=== PATIENT | male | born 1950 | race Caucasian/White ===

== ENCOUNTER 2020-07-03 12:45 | Outpatient (CLI) | payer MEDICARE, OTHER ==
--- NOTE | 2020-07-03 13:51 | CT ---
EXAM: CT Pulmonary Lung Scan PROVIDED CLINICAL HISTORY: Nicotine dependence, cigarettes, uncomplicated. Initial baseline low-dose lung screening CT. COMPARISON: None FINDINGS: Scattered bullous emphysematous changes are seen within the lungs bilaterally with areas of mild scar ring at each lung base. Single tiny approximately 2 mm pulmonary nodule seen in the medial aspect left lung apex. No addition al pulmonary nodule is seen. There is no mass or pleural effusion identified. Lack of intravenous contrast limits evaluation of the mediastinal structures and vasculature. Vascula r calcifications are seen in the coronary arteries with minimal vascular calcifications in the aortic arch. There is a nonspecific mildly enlarged precarinal lymph node measuring 1.3 cm in short axis dimension . Postoperative changes upper abdomen are present. Large multi cystic mass was present in the head of p ancreas on the prior study with dilatation of pancreatic duct. There is limited evaluation of this region on today's examination secondary to lack of intravenous contrast. However, this large mass is no longer visualized, and the postoperative changes in the upper abdomen may be related to prior Whipple procedure. Evidence of cholecystectomy with pneumobilia in the left hepatic lobe. Nonobstructing bilateral renal calculi are present, largest calculus right kidney measuring approxima tely 6 mm. Mild degenerative changes are seen in the spine. No suspicious lytic or sclerotic osseous lesions are identified. There is mild S-shaped curvature of thoracolumbar spine. IMPRESSION: 1. Lung RADS category 2, benign appearance-small 3 mm pulmonary nodule left upper lobe. Continued steve ual screening with low-dose CT scan thorax in 12 months is recommended. 2. Postoperative changes upper abdomen. 3. Bilateral nonobstructing renal calculi. 4. Chronic lung changes and evidence of COPD.
== END 2020-07-03 12:46 | disposition home or self-care (01) ==
LOC: BICCT 12:45
PROVIDERS: ATTEND Physician Assistant
DX: Z12.2 Encounter for screening for malignant neoplasm of respiratory organs (principal); F17.210 Nicotine dependence, cigarettes, uncomplicated; R91.1 Solitary pulmonary nodule; N20.0 Calculus of kidney; J44.9 Chronic obstructive pulmonary disease, unspecified; J98.4 Other disorders of lung; Z98.890 Other specified postprocedural states
CPT/HCPCS: G0297

== ENCOUNTER 2020-10-06 21:50 | Inpatient (IN) | payer MEDICARE, OTHER ==
[2020-10-07 01:16] VITALS: BMI 16.7
[2020-10-07] MEDS ORDERED: Dextrose 5% in Water 1,000 ML IV PRN ×2 (01:57→02:54)
[2020-10-07] MEDS ORDERED: Dextrose 50% Abboject 50 ML SYRINGE SLOW IVP PRN ×2 (01:57→02:54)
[2020-10-07] MEDS ORDERED: Ondansetron PF 4 MG/2 ML Vial IVP PRN (01:57)
[2020-10-07] MEDS ORDERED: hydrALAZINE 20 MG/ML VIAL SLOW IVP PRN (01:57)
[2020-10-07] MEDS ORDERED: traMADol HCl 50 MG TAB PO PRN (01:58)
[2020-10-07] MEDS ORDERED: Morphine 2 MG/ML VIAL SLOW IVP SCH (02:00)
[2020-10-07] MEDS ORDERED: Gabapentin 300 MG CAP PO SCH (02:30)
[2020-10-07] MEDS: Acetaminophen 325 MG TAB PO SCH ×4 (02:33→20:00)
[2020-10-07] MEDS: Nicotine 14 MG PATCH TD SCH (02:33)
[2020-10-07] MEDS: traMADol HCl 50 MG TAB PO SCH ×4 (02:33→20:00)
[2020-10-07] MEDS: Ibuprofen 200 MG TAB PO SCH ×3 (02:35→19:57)
[2020-10-07 04:38] LABS: #Eosinphils 0.1 thou/uL (0.0-0.7); #Lymphocytes 1.7 thou/uL (1.20-3.40); #Neutrophils 5.4 thou/uL (1.40-6.50); %Basophils 0.1 % (0.0-1.0); %Eosinophils 0.8 % (0.0-10.0); %Lymphocytes 20.7 % (21.0-51.0); %Neutrophils 66.3 % (42.0-75.0); Hemoglobin 11.3 g/dL (14.0-18.0); Mean Corpuscular HGB CONC 33.3 g/dL (32.0-36.0); Mean Corpuscular Hemoglobin 32.4 pg (27.0-31.0); Mean Corpuscular Volume 97.3 fL (78.0-98.0); Mean Platelet Volume 10.4 fL (7.4-10.4); Platelet Count 160 thou/uL (130-400); RBC Distribution Width 13.3 % (11.5-14.5); Red Blood Cell (RBC) Count 3.47 mill/uL (4.70-6.10); White Blood Cell (WBC) Count 8.1 thou/uL (4.8-10.8)
[2020-10-07 04:56] LABS: Anion Gap 11 mmol/L (10-20); BUN (Urea Nitrogen) 20 mg/dL (8.4-25.7); Calc. Creatinine Clearance 58 mL/min (70-130); Calcium 7.7 mg/dL (7.8-10.44); Carbon Dioxide 19 mmol/L (23-31); Chloride 111 mmol/L (98-107); Glucose 194 mg/dL (83-110); Potassium 3.8 mmol/L (3.5-5.1); Sodium 137 mmol/L (136-145)
[2020-10-07 04:58] LABS: ALT (SGPT) 24 U/L (8-55); AST (SGOT) 30 U/L (5-34); Albumin 2.8 g/dL (3.4-4.8); Alkaline Phosphatase 117 U/L (40-110); Bilirubin, Direct 0.3 mg/dL (0.1-0.3); Bilirubin, Total 0.5 mg/dL (0.2-1.2); Protein, Total 5.6 g/dL (5.8-8.1)
[2020-10-07 06:36] LABS: Troponin I 0.274 ng/mL (< 0.028)
[2020-10-07] MEDS: HumaLOG 300 UNITS/3 ML VIAL SC PRN ×3 (06:45→22:00)
[2020-10-07] MEDS: Gabapentin 300 MG CAP PO SCH ×3 (08:45→19:59)
[2020-10-07] MEDS: Senokot S 8.6-50 MG TAB PO SCH ×2 (08:46→20:00)
[2020-10-07] MEDS: Famotidine 20 MG TAB PO SCH ×2 (08:46→19:59)
[2020-10-07] MEDS: Polyethylene Glycol 3350 17 GM Packet PO SCH (08:47)
[2020-10-07] MEDS ORDERED: TETANUS, DIPHTHERIA TOX,ADULT (TDVAX) 0.5 ML VIAL IM ONE (12:00)
[2020-10-08] MEDS: Acetaminophen 325 MG TAB PO SCH ×2 (02:07→08:55)
[2020-10-08] MEDS: Ibuprofen 200 MG TAB PO SCH ×2 (02:07→08:54)
[2020-10-08] MEDS: Nicotine 14 MG PATCH TD SCH (02:08)
[2020-10-08] MEDS: traMADol HCl 50 MG TAB PO SCH ×2 (02:08→08:51)
[2020-10-08] MEDS: HumaLOG 300 UNITS/3 ML VIAL SC PRN ×3 (02:19→12:33)
[2020-10-08 06:28] LABS: #Eosinphils 0.2 thou/uL (0.0-0.7); #Lymphocytes 1.6 thou/uL (1.20-3.40); #Monocytes 1.4 thou/uL (0.11-0.59); #Neutrophils 6.1 thou/uL (1.40-6.50); %Basophils 0.3 % (0.0-1.0); %Eosinophils 2.4 % (0.0-10.0); %Lymphocytes 17.6 % (21.0-51.0); %Monocytes 14.4 % (0.0-10.0); %Neutrophils 65.2 % (42.0-75.0); Hemoglobin 10.5 g/dL (14.0-18.0); Mean Corpuscular HGB CONC 33.5 g/dL (32.0-36.0); Mean Corpuscular Hemoglobin 32.5 pg (27.0-31.0); Mean Corpuscular Volume 97.2 fL (78.0-98.0); Mean Platelet Volume 10.5 fL (7.4-10.4); Platelet Count 134 thou/uL (130-400); RBC Distribution Width 13.3 % (11.5-14.5); Red Blood Cell (RBC) Count 3.24 mill/uL (4.70-6.10); White Blood Cell (WBC) Count 9.4 thou/uL (4.8-10.8)
[2020-10-08] MEDS: Famotidine 20 MG TAB PO SCH (08:50)
[2020-10-08] MEDS: Senokot S 8.6-50 MG TAB PO SCH (08:52)
[2020-10-08] MEDS: Gabapentin 300 MG CAP PO SCH (08:52)
[2020-10-08] MEDS: Polyethylene Glycol 3350 17 GM Packet PO SCH (08:52)
[2020-10-08 12:12] VITALS: BP 142/77; TEMP 97.9
== END 2020-10-08 13:55 | disposition home or self-care (01) | DRG 184 ==
LOC: 2NO 10-07 01:02 → SJJU 10-07 17:35
PROVIDERS: ADMIT Specialist; ATTEND Specialist
PROC: 3E0234Z Introduction of Serum, Toxoid and Vaccine into Muscle, Percutaneous Approach (ICD-10-PCS; principal; 2020-10-07)
DX: S22.41XA Multiple fractures of ribs, right side, initial encounter for closed fracture (principal); Z23 Encounter for immunization; S22.21XA Fracture of manubrium, initial encounter for closed fracture; S26.91XA Contusion of heart, unspecified with or without hemopericardium, initial encounter; E11.9 Type 2 diabetes mellitus without complications; J44.9 Chronic obstructive pulmonary disease, unspecified; F17.210 Nicotine dependence, cigarettes, uncomplicated; R77.8 Other specified abnormalities of plasma proteins; W55.29XA Other contact with cow, initial encounter
CPT/HCPCS: 36415; 36416; 71045; 71260; 72125; 80048; 80053; 80076; 82550; 82553; 84484; 85025; 90714; 93005; 93306; 94640; 96374; 96375; J1815; J1885; J2270; J7620; U0002

== ENCOUNTER 2024-02-29 15:04 | Inpatient (IN) | payer MEDICARE, OTHER ==
[2024-02-29 18:24] LABS: #Basophils Less than 0.03 10x3/uL (0.0-0.2); %Basophils 0.2 % (0.0-1.0); %Eosinophils 1.7 % (0.0-10.0); %Lymphocytes 27.9 % (21.0-51.0); %Monocytes 11.4 % (0.0-10.0); %Neutrophils 58.5 % (42.0-75.0); Hematocrit 31.2 % (42.0-52.0); Hemoglobin 10.2 g/dL (14.0-18.0); Mean Corpuscular HGB CONC 32.7 g/dL (32.0-36.0); Mean Corpuscular Hemoglobin 30.4 pg (27.0-31.0); Mean Corpuscular Volume 92.9 fL (78.0-98.0); Mean Platelet Volume 11.3 fL (7.4-10.4); Platelet Count 481 10x3/uL (130-400); RBC Distribution Width 18.6 % (11.5-14.5); Red Blood Cell (RBC) Count 3.36 mill/uL (4.70-6.10)
[2024-02-29 18:40] LABS: ALT (SGPT) 24 U/L (8-55); AST (SGOT) 34 U/L (5-34); Albumin 2.1 g/dL (3.4-4.8); Alkaline Phosphatase 120 U/L (40-110); Anion Gap 14 mmol/L (10-20); BUN (Urea Nitrogen) 56 mg/dL (8.4-25.7); Bilirubin, Total 0.3 mg/dL (0.2-1.2); Calc. Creatinine Clearance 0 mL/min (70-130); Calcium 8.3 mg/dL (7.8-10.44); Carbon Dioxide 17 mmol/L (23-31); Chloride 113 mmol/L (98-107); Estimated GFR 41; Globulin 4.3 g/dL (2.4-3.5); Glucose 190 mg/dL (83-110); Potassium 3.9 mmol/L (3.5-5.1); Protein, Total 6.4 g/dL (5.8-8.1); Sodium 140 mmol/L (136-145)
[2024-02-29] MEDS ORDERED: Morphine 2 MG/ML VIAL ONE (19:10)
[2024-02-29 20:05] LABS: INR-International Normal Ratio 1.1; PTT 30.2 sec (22.9-36.1); Prothrombin Time 14.1 sec (12.0-14.7)
[2024-02-29] MEDS ORDERED: Morphine 4 MG/ML VIAL ONE (20:43)
[2024-02-29] MEDS ORDERED: Diphenoxylate HCl/Atropine Tablet PO PRN (21:25)
[2024-02-29] MEDS ORDERED: Dextrose 50% Abboject 50 ML SYRINGE SLOW IVP PRN (21:29)
[2024-02-29] MEDS ORDERED: Dextrose 5% in Water 1,000 ML IV PRN (21:29)
[2024-02-29] MEDS ORDERED: Ondansetron PF 4 MG/2 ML Vial IVP PRN (21:29)
[2024-02-29] MEDS ORDERED: Glucagon 1 MG/ML KIT IM PRN (21:29)
[2024-02-29 22:39] VITALS: BMI 17.4
[2024-03-01] MEDS: Morphine 2 MG/ML VIAL SLOW IVP PRN (00:22)
[2024-03-01] MEDS: traMADol HCl 50 MG TAB PO PRN (04:05)
[2024-03-01] MEDS: Insulin Lispro 100 UNIT/ML 10 ML VIAL SC PRN ×2 (04:06→22:42)
[2024-03-01 06:51] LABS: #Basophils 0.03 10x3/uL (0.0-0.2); %Basophils 0.3 % (0.0-1.0); %Eosinophils 1.9 % (0.0-10.0); %Lymphocytes 24.6 % (21.0-51.0); %Monocytes 15.3 % (0.0-10.0); %Neutrophils 57.6 % (42.0-75.0); Hematocrit 26.9 % (42.0-52.0); Hemoglobin 9.1 g/dL (14.0-18.0); Mean Corpuscular HGB CONC 33.8 g/dL (32.0-36.0); Mean Corpuscular Volume 88.8 fL (78.0-98.0); Mean Platelet Volume 11.1 fL (7.4-10.4); Platelet Count 412 10x3/uL (130-400); RBC Distribution Width 18.6 % (11.5-14.5); Red Blood Cell (RBC) Count 3.03 mill/uL (4.70-6.10)
[2024-03-01 07:00] LABS: Anion Gap 11 mmol/L (10-20); BUN (Urea Nitrogen) 48 mg/dL (8.4-25.7); Calc. Creatinine Clearance 36 mL/min (70-130); Calcium 7.8 mg/dL (7.8-10.44); Carbon Dioxide 19 mmol/L (23-31); Chloride 116 mmol/L (98-107); Estimated GFR 47; Glucose 77 mg/dL (83-110); Potassium 3.3 mmol/L (3.5-5.1); Sodium 143 mmol/L (136-145)
[2024-03-01] MEDS: Gabapentin 300 MG CAP PO SCH (08:39)
[2024-03-01] MEDS: Pantoprazole DR 40 MG TAB PO SCH (08:39)
[2024-03-01] MEDS: Cyclobenzaprine 10 MG TAB PO PRN (08:40)
[2024-03-01] MEDS ORDERED: Insulin NPH Human Isophane 100 UNITS/ML (10 ML VIAL) SC SCH ×2 (09:00→21:00)
[2024-03-01] MEDS: Pancrelipase DR 12,000 1 CAP PO SCH (09:13)
[2024-03-01] MEDS ORDERED: Lidocaine 1% (PF) 30 ML VIAL ONE (10:42)
[2024-03-01] MEDS: Amlodipine 5 MG TAB PO SCH (11:56)
[2024-03-01] MEDS: Torsemide 20 MG TAB PO SCH ×2 (11:56→22:37)
[2024-03-01 13:05] LABS: Synovial Fluid, Protein 2.8 g/dL (Not Available); Synovial Fluid, Uric Acid 8.4 mg/dL (Not Available)
[2024-03-01 14:34] LABS: BF Color Red; Body Fluid Source Synovial Fluid; Clarity Cloudy/Turbid (Clear); Tube # EDTA
[2024-03-01 14:50] VITALS: BMI 17.4
[2024-03-01 14:58] LABS: RBC Count-Automated (BF) 52459 /cu.mm; WBC/Nucleated-Auto (BF) 5974 /cu.mm
[2024-03-01 15:57] LABS: BF Segmented Neutrophils 86 %; Cell Count Non Hematic 12 %; Lymphocytes 2 %
[2024-03-01] MEDS: hydrALAZINE 10 MG TAB PO PRN (18:51)
[2024-03-01] MEDS: Losartan 25 MG TAB PO SCH (22:37)
[2024-03-01] MEDS: Tamsulosin HCl 0.4 MG CAP PO SCH (22:37)
[2024-03-02 05:55] LABS: #Basophils Less than 0.03 10x3/uL (0.0-0.2); %Basophils 0.2 % (0.0-1.0); %Eosinophils 1.8 % (0.0-10.0); %Lymphocytes 28.2 % (21.0-51.0); %Monocytes 16.5 % (0.0-10.0); Hematocrit 27.9 % (42.0-52.0); Hemoglobin 9.3 g/dL (14.0-18.0); Mean Corpuscular HGB CONC 33.3 g/dL (32.0-36.0); Mean Corpuscular Hemoglobin 30.8 pg (27.0-31.0); Mean Corpuscular Volume 92.4 fL (78.0-98.0); Mean Platelet Volume 11.3 fL (7.4-10.4); Platelet Count 405 10x3/uL (130-400); RBC Distribution Width 18.4 % (11.5-14.5); Red Blood Cell (RBC) Count 3.02 mill/uL (4.70-6.10)
[2024-03-02 06:12] LABS: Anion Gap 11 mmol/L (10-20); BUN (Urea Nitrogen) 43 mg/dL (8.4-25.7); Calc. Creatinine Clearance 35 mL/min (70-130); Carbon Dioxide 23 mmol/L (23-31); Chloride 110 mmol/L (98-107); Potassium 4.1 mmol/L (3.5-5.1); Sodium 140 mmol/L (136-145)
[2024-03-02 06:13] LABS: Calcium 7.9 mg/dL (7.8-10.44); Estimated GFR 45; Glucose 113 mg/dL (83-110)
[2024-03-02] MEDS: Amlodipine 5 MG TAB PO SCH (08:59)
[2024-03-02] MEDS: Insulin Glargine 30 UNITS/0.3 ML VIAL SC SCH (09:04)
[2024-03-03] MEDS: Acetaminophen 325 MG TAB PO PRN (08:33)
[2024-03-03 12:54] VITALS: BP 122/61; TEMP 98.8
== END 2024-03-03 13:10 | disposition home or self-care (01) | DRG 556 ==
LOC: ERS 15:04 → SURG B 21:09 → OBSVTOIN 03-01 13:24
PROVIDERS: ADMIT Internal Medicine; ATTEND Internal Medicine
PROC: 0X983ZZ Drainage of Right Upper Arm, Percutaneous Approach (ICD-10-PCS; principal; 2024-03-01)
DX: M79.81 Nontraumatic hematoma of soft tissue (principal); I48.0 Paroxysmal atrial fibrillation; D64.9 Anemia, unspecified; E11.51 Type 2 diabetes mellitus with diabetic peripheral angiopathy without gangrene; K21.9 Gastro-esophageal reflux disease without esophagitis; E11.40 Type 2 diabetes mellitus with diabetic neuropathy, unspecified; E11.22 Type 2 diabetes mellitus with diabetic chronic kidney disease; F17.210 Nicotine dependence, cigarettes, uncomplicated; I12.9 Hypertensive chronic kidney disease with stage 1 through stage 4 chronic kidney disease, or unspecified chronic kidney disease; N18.2 Chronic kidney disease, stage 2 (mild); Z79.899 Other long term (current) drug therapy; Z79.01 Long term (current) use of anticoagulants; Z79.4 Long term (current) use of insulin; Z90.410 Acquired total absence of pancreas; Z90.81 Acquired absence of spleen
CPT/HCPCS: 36415; 36416; 80048; 80053; 82945; 83605; 84157; 84560; 85025; 85060; 85610; 85730; 87040; 87070; 87205; 89051; 89060; 96374; 96376; G0378; J1815; J2001; J2272

== ENCOUNTER 2024-05-06 15:27 | Outpatient (CLI) | payer MEDICARE ==
[2024-05-06 16:41] LABS: #Basophils 0.03 10x3/uL (0.0-0.2); %Basophils 0.5 % (0.0-1.0); %Eosinophils 0.8 % (0.0-10.0); %Lymphocytes 31.7 % (21.0-51.0); %Monocytes 13.1 % (0.0-10.0); %Neutrophils 53.7 % (42.0-75.0); Hematocrit 36.2 % (42.0-52.0); Hemoglobin 11.7 g/dL (14.0-18.0); Mean Corpuscular HGB CONC 32.3 g/dL (32.0-36.0); Mean Corpuscular Hemoglobin 32.3 pg (27.0-31.0); Mean Platelet Volume 11.8 fL (7.4-10.4); Platelet Count 283 10x3/uL (130-400); RBC Distribution Width 16.3 % (11.5-14.5); Red Blood Cell (RBC) Count 3.62 mill/uL (4.70-6.10)
[2024-05-06 17:03] LABS: INR-International Normal Ratio 1.1; PTT 30.7 sec (22.9-36.1)
[2024-05-06 17:05] LABS: Anion Gap 12 mmol/L (10-20); BUN (Urea Nitrogen) 72 mg/dL (8.4-25.7); Calc. Creatinine Clearance 0 mL/min (70-130); Calcium 7.8 mg/dL (7.8-10.44); Carbon Dioxide 14 mmol/L (23-31); Chloride 113 mmol/L (98-107); Estimated GFR 26; Glucose 173 mg/dL (83-110); Potassium 3.9 mmol/L (3.5-5.1); Sodium 135 mmol/L (136-145)
== END 2024-05-06 15:28 | disposition home or self-care (01) ==
LOC: LABBT 15:27
PROVIDERS: ATTEND Orthopaedic Surgery
DX: Z01.818 Encounter for other preprocedural examination (principal); M12.811 Other specific arthropathies, not elsewhere classified, right shoulder
CPT/HCPCS: 80048; 85025; 85610; 85730; 86850; 86900; 86901; 87081; 93005; 93010

== ENCOUNTER 2024-05-13 07:02 | Inpatient (IN) | payer MEDICARE ==
[2024-05-06 16:06] VITALS: BMI 17.9
[2024-05-13] MEDS ORDERED: Midazolam HCl 2 mg/2 ml Vial ONE (08:24)
[2024-05-13] MEDS ORDERED: Ropivacaine 0.2% HCl/PF 20 ML ONE (08:24)
[2024-05-13] MEDS ORDERED: fentaNYL 50 mcg/mL 1 mL Vial ONE ×2 (08:24→13:03)
[2024-05-13] MEDS ORDERED: Ropivacaine 0.5% HCl/PF (150 MG/30 ML VIAL) ONE (08:24)
[2024-05-13] MEDS ORDERED: CEFAZOLIN 2 GM VIAL ONE (08:32)
[2024-05-13] MEDS ORDERED: Tranexamic Acid 1,000 MG/10 ML VIAL ONE (08:32)
[2024-05-13] MEDS ORDERED: Clindamycin/D5W 600 mg/50 ml Premix Bag ONE (08:32)
[2024-05-13] MEDS ORDERED: Sodium Chloride 0.9% 100 ML ONE (08:33)
[2024-05-13] MEDS ORDERED: PROPOFOL 20 ML ONE (08:44)
[2024-05-13] MEDS ORDERED: fentaNYL PF 100 MCG/2 ML SYRINGE ONE (08:44)
[2024-05-13] MEDS ORDERED: Zolpidem Tartrate 5 MG TAB PO PRN (08:45)
[2024-05-13] MEDS ORDERED: SUGAMMADEX SODIUM 200 MG/2 ML VIAL ONE ×2 (08:45→12:01)
[2024-05-13] MEDS ORDERED: Dexamethasone 4 mg/ml Vial ONE (08:45)
[2024-05-13] MEDS ORDERED: Ondansetron PF 4 MG/2 ML Vial IVP PRN (08:45)
[2024-05-13] MEDS ORDERED: Ropivacaine 0.2% 550 ML 550 ML NERVE BLCK SCH (08:45)
[2024-05-13] MEDS ORDERED: fentaNYL 50 mcg/mL 1 mL Vial SLOW IVP PRN (08:45)
[2024-05-13] MEDS ORDERED: HYDROcodone/Acetaminophen 10/325 mg Tablet PO PRN ×2 (08:45)
[2024-05-13] MEDS ORDERED: Rocuronium Bromide 10 MG/ML (10ML VIAL) ONE (08:45)
[2024-05-13] MEDS ORDERED: Promethazine HCl 25 MG/ML VIAL IM PRN (08:45)
[2024-05-13] MEDS ORDERED: Ondansetron PF 4 MG/2 ML Vial ONE (08:45)
[2024-05-13] MEDS ORDERED: traMADol HCl 50 MG TAB PO PRN ×2 (08:45)
[2024-05-13] MEDS ORDERED: Phenylephrine 40 MG/NS 250 ML 250 ML ONE (09:43)
[2024-05-13] MEDS ORDERED: Vancomycin 1 GM/200 ML (FROZEN) BAG ONE (10:01)
[2024-05-13] MEDS ORDERED: CEFAZOLIN 1 GM VIAL ONE (10:37)
[2024-05-13] MEDS ORDERED: Glycopyrrolate 0.2 MG/ML 5 ML SYRINGE ONE (10:37)
[2024-05-13] MEDS ORDERED: ePHEDrine Sulfate 50 MG/10 ML VIAL ONE (11:51)
[2024-05-13] MEDS ORDERED: Non-Formulary Item 1 EACH (Lipase/Protease/Amylase [Creon Dr 36,000 Units] 1 CAPSULE Caps PO SCH (13:19)
[2024-05-13] MEDS ORDERED: Ondansetron ODT 4 MG TAB PO PRN (13:19)
[2024-05-13] MEDS ORDERED: GLUCAGON 3 MG NS PRN (13:19)
[2024-05-13] MEDS ORDERED: diphenhydrAMINE 50 MG CAP PO PRN (13:19)
[2024-05-13] MEDS ORDERED: Milk Of Magnesia 30 ML UDCUP PO PRN (13:19)
[2024-05-13] MEDS ORDERED: Bisacodyl 10 MG SUPP PR PRN (13:19)
[2024-05-13] MEDS ORDERED: GLUCAGON 3 MG PO PRN (13:40)
[2024-05-13] MEDS ORDERED: Glucagon 1 MG/ML KIT IM PRN (16:33)
[2024-05-13] MEDS: Pancrelipase DR 12,000 1 CAP PO SCH (17:02)
[2024-05-13] MEDS: CEFAZOLIN 2 GM in Sodium Chloride 0.9% 100 ML IVPB SCH (17:04)
[2024-05-13] MEDS: FLU (Fluad Triv) TS24-25 (65UP)/MF59C/PF 45 MCG/0.5 ML Syringe IM ONE (17:12)
[2024-05-13] MEDS: Cyclobenzaprine 10 MG TAB PO SCH (17:12)
[2024-05-13] MEDS: Sodium Chloride 0.9% 1,000 ML IV SCH (17:13)
[2024-05-13] MEDS ORDERED: OLMESARTAN MEDOXOMIL 5 MG PO SCH (21:00)
[2024-05-13] MEDS ORDERED: Diphenoxylate HCl/Atropine Tablet PO SCH (21:00)
[2024-05-13] MEDS: Varenicline Tartrate 0.5 MG TAB PO SCH (21:35)
[2024-05-13] MEDS: Gabapentin 300 MG CAP PO SCH (21:35)
[2024-05-13] MEDS: Tamsulosin HCl 0.4 MG CAP PO SCH (21:36)
[2024-05-13] MEDS: Losartan 25 MG TAB PO SCH (21:36)
[2024-05-13] MEDS: Torsemide 20 MG TAB PO SCH (21:36)
[2024-05-13] MEDS: Diphenoxylate HCl/Atropine Tablet PO SCH (21:37)
[2024-05-13] MEDS ORDERED: Dextrose 5% in Water 1,000 ML IV PRN (22:46)
[2024-05-13] MEDS: Insulin Lispro 100 UNIT/ML 10 ML VIAL SC PRN (22:59)
[2024-05-14 05:06] LABS: #Basophils 0.03 10x3/uL (0.0-0.2); %Basophils 0.4 % (0.0-1.0); %Eosinophils 0.6 % (0.0-10.0); %Lymphocytes 18.7 % (21.0-51.0); %Monocytes 13.3 % (0.0-10.0); %Neutrophils 66.8 % (42.0-75.0); Hematocrit 26.4 % (42.0-52.0); Mean Corpuscular HGB CONC 34.1 g/dL (32.0-36.0); Mean Corpuscular Hemoglobin 31.6 pg (27.0-31.0); Mean Corpuscular Volume 92.6 fL (78.0-98.0); Mean Platelet Volume 12.2 fL (7.4-10.4); Platelet Count 242 10x3/uL (130-400); RBC Distribution Width 15.4 % (11.5-14.5); Red Blood Cell (RBC) Count 2.85 mill/uL (4.70-6.10)
[2024-05-14 05:56] LABS: Anion Gap 12 mmol/L (10-20); BUN (Urea Nitrogen) 49 mg/dL (8.4-25.7); Calc. Creatinine Clearance 22 mL/min (70-130); Calcium 7.2 mg/dL (7.8-10.44); Carbon Dioxide 13 mmol/L (23-31); Chloride 111 mmol/L (98-107); Estimated GFR 24; Glucose 457 mg/dL (83-110); Potassium 4.4 mmol/L (3.5-5.1); Sodium 132 mmol/L (136-145)
[2024-05-14] MEDS: Insulin Lispro 100 UNIT/ML 10 ML VIAL SC PRN (06:07)
[2024-05-14] MEDS: Insulin Glargine 30 UNITS/0.3 ML VIAL SC SCH (08:59)
[2024-05-14] MEDS: Apixaban 2.5 MG TAB PO SCH (09:00)
[2024-05-14] MEDS ORDERED: Insulin Glargine 30 UNITS/0.3 ML VIAL SC SCH (09:00)
[2024-05-14] MEDS: Pantoprazole DR 40 MG TAB PO SCH (09:01)
[2024-05-14] MEDS: HumuLIN 70/30 100 Unit/ml 10 ml Vial SC SCH (09:55)
[2024-05-14 16:09] VITALS: BMI 17.9
[2024-05-14] MEDS: Sodium Bicarbonate Tab 325 MG TAB PO SCH (20:43)
[2024-05-14] MEDS: Clopidogrel Bisulfate 75 MG TAB PO SCH (20:44)
[2024-05-14] MEDS: Acetaminophen 325 MG TAB PO PRN (23:51)
[2024-05-15] MEDS: Dextrose 50% Abboject 50 ML SYRINGE SLOW IVP PRN (04:49)
[2024-05-15 05:43] LABS: Anion Gap 11 mmol/L (10-20); BUN (Urea Nitrogen) 52 mg/dL (8.4-25.7); Calc. Creatinine Clearance 28 mL/min (70-130); Calcium 7.1 mg/dL (7.8-10.44); Carbon Dioxide 15 mmol/L (23-31); Chloride 113 mmol/L (98-107); Estimated GFR 34; Glucose 174 mg/dL (83-110); Sodium 135 mmol/L (136-145)
[2024-05-15 05:46] LABS: #Basophils Less than 0.03 10x3/uL (0.0-0.2); #Eosinophils Less than 0.03 10x3/uL (0.0-0.7); %Basophils 0.2 % (0.0-1.0); %Eosinophils 0.1 % (0.0-10.0); %Lymphocytes 11.7 % (21.0-51.0); %Monocytes 16.7 % (0.0-10.0); %Neutrophils 70.9 % (42.0-75.0); Hematocrit 26.7 % (42.0-52.0); Mean Corpuscular HGB CONC 33.7 g/dL (32.0-36.0); Mean Corpuscular Hemoglobin 31.7 pg (27.0-31.0); Mean Platelet Volume 12.1 fL (7.4-10.4); Platelet Count 241 10x3/uL (130-400); RBC Distribution Width 15.7 % (11.5-14.5); Red Blood Cell (RBC) Count 2.84 mill/uL (4.70-6.10)
[2024-05-15 08:30] LABS: ALT (SGPT) 5 U/L (8-55); AST (SGOT) 20 U/L (5-34); Albumin 1.7 g/dL (3.4-4.8); Alkaline Phosphatase 100 U/L (40-110); Bilirubin, Direct 0.1 mg/dL (0.1-0.3); Bilirubin, Total 0.2 mg/dL (0.2-1.2); Protein, Total 4.5 g/dL (5.8-8.1)
[2024-05-15 11:17] VITALS: BP 165/72; TEMP 98.3
[2024-05-15] MEDS: Amlodipine 5 MG TAB PO SCH (11:34)
[2024-05-16] MEDS ORDERED: Amlodipine 5 MG TAB PO SCH (09:00)
== END 2024-05-15 12:51 | disposition home or self-care (01) | DRG 483 ==
LOC: SDC 07:02 → SURG A 14:40 → OBSVTOIN 05-14 10:04
PROVIDERS: ADMIT Orthopaedic Surgery; ATTEND Orthopaedic Surgery
PROC: 0RRJ00Z Replacement of Right Shoulder Joint with Reverse Ball and Socket Synthetic Substitute, Open Approach (ICD-10-PCS; principal; 2024-05-14)
DX: M12.811 Other specific arthropathies, not elsewhere classified, right shoulder (principal); I12.9 Hypertensive chronic kidney disease with stage 1 through stage 4 chronic kidney disease, or unspecified chronic kidney disease; E11.22 Type 2 diabetes mellitus with diabetic chronic kidney disease; E11.51 Type 2 diabetes mellitus with diabetic peripheral angiopathy without gangrene; K21.9 Gastro-esophageal reflux disease without esophagitis; N40.0 Benign prostatic hyperplasia without lower urinary tract symptoms; F17.210 Nicotine dependence, cigarettes, uncomplicated; I48.0 Paroxysmal atrial fibrillation; N18.30 Chronic kidney disease, stage 3 unspecified; E11.65 Type 2 diabetes mellitus with hyperglycemia; D63.1 Anemia in chronic kidney disease; I95.1 Orthostatic hypotension; E83.51 Hypocalcemia; Z91.041 Radiographic dye allergy status
CPT/HCPCS: 36415; 36416; 80048; 80076; 85025; 90653; A4306; C1713; C1776; J0690; J1100; J1815; J2250; J2405; J2704; J2795; J3010; J3370-JW; J3490; J7030; J7999

== ENCOUNTER 2024-07-19 15:26 | Outpatient (CLI) | payer MEDICARE ==
[2024-07-19 17:04] LABS: Hematocrit 31.5 % (42.0-52.0); Hemoglobin 10.1 g/dL (14.0-18.0); Mean Corpuscular HGB CONC 32.1 g/dL (32.0-36.0); Mean Corpuscular Hemoglobin 30.1 pg (27.0-31.0); Platelet Count 358 10x3/uL (130-400); RBC Distribution Width 18.5 % (11.5-14.5); Red Blood Cell (RBC) Count 3.35 mill/uL (4.70-6.10)
[2024-07-19 17:17] LABS: INR-International Normal Ratio 1.1; Prothrombin Time 14.4 sec (12.0-14.7)
[2024-07-19 17:27] LABS: Anisocytosis SLIGHT = 6-15 cells HPF (0-5); Band 5 % (5-11); Burr Cells SLIGHT = 2-5 cells HPF (0-1); Eosinophils 1 % (0-10); Hypochromia SLIGHT = 6-15 cells HPF (0-5); Large Platelets 26.5 % (0-5); Lymphocytes 15 % (21-51); Monocytes 10 % (0-10); Neutrophil 67 % (42-75); Nucleated RBC (Manual Ct) 7 % (0); Ovalocytes SLIGHT = 2-5 cells HPF (0-1); Platelet Adequacy Comment Platelets Normal; Poikilocytosis SLIGHT = 6-15 cells HPF (0-5); Polychromasia SLIGHT = 2-3 cells HPF (0-2); Reactive Lymphocytes 2 % (0-10); Schistocytes SLIGHT = 2-5 cells HPF (0-1); Smudge Cells 9.8 %; Target Cells SLIGHT = 2-5 cells HPF (0-1)
[2024-07-19 17:54] LABS: Anion Gap 14 mmol/L (10-20); BUN (Urea Nitrogen) 44 mg/dL (8.4-25.7); Calc. Creatinine Clearance 0 mL/min (70-130); Calcium 7.8 mg/dL (7.8-10.44); Carbon Dioxide 11 mmol/L (23-31); Chloride 115 mmol/L (98-107); Estimated GFR 21; Glucose 470 mg/dL (83-110); Potassium 5.3 mmol/L (3.5-5.1); Sodium 135 mmol/L (136-145)
== END 2024-07-19 15:27 ==
LOC: LABBT 15:26
PROVIDERS: ATTEND Orthopaedic Surgery
DX: Z01.818 Encounter for other preprocedural examination (principal); M00.811 Arthritis due to other bacteria, right shoulder; Z96.611 Presence of right artificial shoulder joint
CPT/HCPCS: 80048; 85025; 85610; 87081; 93005; 93010

== ENCOUNTER 2024-07-22 07:29 | Inpatient (IN) | payer MEDICARE ==
[2024-07-19 16:09] VITALS: BMI 17.8
[2024-07-22] MEDS ORDERED: Dextrose 50% Abboject 50 ML SYRINGE ONE (08:05)
[2024-07-22] MEDS ORDERED: Vancomycin 1 GM/200 ML (FROZEN) BAG ONE (08:17)
[2024-07-22] MEDS ORDERED: Tranexamic Acid 1,000 MG/10 ML VIAL ONE (08:17)
[2024-07-22] MEDS ORDERED: Sodium Chloride 0.9% 100 ML ONE (08:18)
[2024-07-22] MEDS ORDERED: PROPOFOL 20 ML ONE (08:37)
[2024-07-22] MEDS ORDERED: Lidocaine 1% PF 5 ML VIAL ONE (08:38)
[2024-07-22] MEDS ORDERED: fentaNYL 50 mcg/mL 1 mL Vial ONE ×2 (08:38→08:42)
[2024-07-22] MEDS ORDERED: Rocuronium Bromide 10 MG/ML (10ML VIAL) ONE (08:38)
[2024-07-22] MEDS ORDERED: Ropivacaine 0.5% HCl/PF (150 MG/30 ML VIAL) ONE (08:42)
[2024-07-22] MEDS ORDERED: CEFAZOLIN 2 GM VIAL ONE (09:23)
[2024-07-22] MEDS ORDERED: ePHEDrine Sulfate 50 MG/10 ML VIAL ONE (09:43)
[2024-07-22] MEDS ORDERED: Phenylephrine 40 MG/NS 250 ML 250 ML ONE (09:44)
[2024-07-22] MEDS ORDERED: Vasopressin 20 UNITS/ML VIAL ONE (10:59)
[2024-07-22] MEDS ORDERED: Norepinephrine 4 MG/4 ML VIAL ONE (11:00)
[2024-07-22] MEDS ORDERED: Ondansetron PF 4 MG/2 ML Vial ONE (11:26)
[2024-07-22] MEDS ORDERED: SUGAMMADEX SODIUM 200 MG/2 ML VIAL ONE (11:27)
[2024-07-22] MEDS ORDERED: traMADol HCl 50 MG TAB PO PRN (11:53)
[2024-07-22] MEDS ORDERED: Ondansetron HCl/PF 4 MG/2 ML Vial IVP PRN (12:15)
[2024-07-22] MEDS ORDERED: Promethazine HCl 25 MG/ML VIAL IM PRN (12:15)
[2024-07-22] MEDS: HYDROcodone/Acetaminophen 10/325 mg Tablet PO PRN (15:59)
[2024-07-22] MEDS: cefTRIAXone\\ROCEPHIN 2 GM in Sodium Chloride 0.9% 100 ML IVPB SCH (17:49)
[2024-07-23] MEDS: HYDROcodone/Acetaminophen 10/325 mg Tablet PO PRN (01:41)
[2024-07-23] MEDS ORDERED: Glucagon 1 MG/ML KIT IM PRN (02:43)
[2024-07-23] MEDS ORDERED: Dextrose 50% Abboject 50 ML SYRINGE SLOW IVP PRN (02:43)
[2024-07-23] MEDS ORDERED: Dextrose 5% in Water 1,000 ML IV PRN (02:43)
[2024-07-23] MEDS ORDERED: Diphenoxylate HCl/Atropine Tablet PO PRN (03:09)
[2024-07-23] MEDS ORDERED: Gabapentin 300 MG CAP PO PRN (03:14)
[2024-07-23] MEDS: Insulin Lispro 100 UNIT/ML 10 ML VIAL SC SCH (03:14)
[2024-07-23 05:55] LABS: Anion Gap 11 mmol/L (10-20); BUN (Urea Nitrogen) 57 mg/dL (8.4-25.7); Calc. Creatinine Clearance 16 mL/min (70-130); Calcium 7.3 mg/dL (7.8-10.44); Carbon Dioxide 10 mmol/L (23-31); Chloride 114 mmol/L (98-107); Estimated GFR 18; Glucose 315 mg/dL (83-110); Hematocrit 23.7 % (42.0-52.0); Hemoglobin 7.7 g/dL (14.0-18.0); Mean Corpuscular HGB CONC 32.5 g/dL (32.0-36.0); Mean Corpuscular Hemoglobin 30.3 pg (27.0-31.0); Mean Corpuscular Volume 93.3 fL (78.0-98.0); Mean Platelet Volume 11.6 fL (7.4-10.4); Platelet Count 299 10x3/uL (130-400); Potassium 4.6 mmol/L (3.5-5.1); RBC Distribution Width 18.6 % (11.5-14.5); Red Blood Cell (RBC) Count 2.54 mill/uL (4.70-6.10); Sodium 130 mmol/L (136-145)
[2024-07-23 06:25] LABS: Anisocytosis SLIGHT = 6-15 cells HPF (0-5); Band 2 % (5-11); Burr Cells MODERATE= 6-15 cells HPF (0-1); Eosinophils 2 % (0-10); Hypochromia SLIGHT = 6-15 cells HPF (0-5); Large Platelets 20.4 % (0-5); Lymphocytes 26 % (21-51); Monocytes 6 % (0-10); Neutrophil 63 % (42-75); Nucleated RBC (Manual Ct) 40 % (0); Platelet Adequacy Comment Platelets Normal; Poikilocytosis SLIGHT = 6-15 cells HPF (0-5); Polychromasia MODERATE = 3-4 cells HPF (0-2); Smudge Cells 11.7 %
[2024-07-23] MEDS: Insulin Glargine 30 UNITS/0.3 ML VIAL SC SCH (08:21)
[2024-07-23] MEDS: Pancrelipase DR 12,000 1 CAP PO SCH (08:38)
[2024-07-23] MEDS: Sodium Chloride 0.9% 1,000 ML IV SCH (08:48)
[2024-07-23 09:28] VITALS: BMI 17.8
[2024-07-23] MEDS: Metoprolol Succinate XL 25 MG ER.TAB PO SCH (09:38)
[2024-07-23] MEDS: Amlodipine 5 MG TAB PO SCH (09:38)
[2024-07-23] MEDS: Losartan 25 MG TAB PO SCH (09:38)
[2024-07-23] MEDS: Pantoprazole 40 MG DR.TAB PO SCH (09:38)
[2024-07-23 13:13] LABS: Hematocrit 28.9 % (42.0-52.0); Hemoglobin 9.7 g/dL (14.0-18.0)
[2024-07-23] MEDS: Insulin Lispro 100 UNIT/ML 10 ML VIAL SC PRN (17:54)
[2024-07-23] MEDS: Tamsulosin HCl 0.4 MG CAP PO SCH (21:44)
[2024-07-23] MEDS: CEFAZOLIN 2 GM in Sodium Chloride 0.9% 100 ML IVPB SCH (21:44)
[2024-07-24] MEDS: cefTRIAXone\\ROCEPHIN 2 GM in Sodium Chloride 0.9% 100 ML IVPB SCH (08:31)
[2024-07-24] MEDS: Saccharomyces boulardii 250 MG CAP PO SCH (08:49)
[2024-07-24 09:05] LABS: Hematocrit 28.3 % (42.0-52.0); Hemoglobin 9.6 g/dL (14.0-18.0); Mean Corpuscular HGB CONC 34.2 g/dL (32.0-36.0); Mean Corpuscular Hemoglobin 31.6 pg (27.0-31.0); Mean Corpuscular Volume 92.4 fL (78.0-98.0); Mean Platelet Volume 11.1 fL (7.4-10.4); Platelet Count 258 10x3/uL (130-400); RBC Distribution Width 17.9 % (11.5-14.5); Red Blood Cell (RBC) Count 3.04 mill/uL (4.70-6.10)
[2024-07-24 09:13] LABS: Anion Gap 13 mmol/L (10-20); BUN (Urea Nitrogen) 59 mg/dL (8.4-25.7); Calc. Creatinine Clearance 19 mL/min (70-130); Calcium 7.5 mg/dL (7.8-10.44); Carbon Dioxide 10 mmol/L (23-31); Chloride 114 mmol/L (98-107); Estimated GFR 22; Glucose 134 mg/dL (83-110); Potassium 5.8 mmol/L (3.5-5.1); Sodium 131 mmol/L (136-145)
[2024-07-24] MEDS: Insulin Glargine 30 UNITS/0.3 ML VIAL SC SCH (10:29)
[2024-07-24] MEDS: LOKELMA 10 GM PACKET PO SCH (11:17)
[2024-07-24] MEDS: Sodium Bicarbonate 150 MEQ in Dextrose 5% in Water 1,000 ML IV SCH ×2 (11:29→22:43)
[2024-07-24] MEDS ORDERED: Vancomycin Dose by Levels Sliding Scale (Wt <71) FS SCH (11:30)
[2024-07-24 12:19] LABS: Lactic Acid 0.92 mmol/L (0.5-2.2)
[2024-07-24] MEDS: Vancomycin 1 GM in Premix 1 BAG IVPB SCH ×2 (13:47→16:49)
[2024-07-24 17:02] LABS: Anion Gap 12 mmol/L (10-20); BUN (Urea Nitrogen) 58 mg/dL (8.4-25.7); Calc. Creatinine Clearance 21 mL/min (70-130); Calcium 7.3 mg/dL (7.8-10.44); Carbon Dioxide 13 mmol/L (23-31); Chloride 113 mmol/L (98-107); Estimated GFR 25; Glucose 234 mg/dL (83-110); Potassium 5.2 mmol/L (3.5-5.1); Sodium 133 mmol/L (136-145)
[2024-07-24 21:15] LABS: Anion Gap 14 mmol/L (10-20); BUN (Urea Nitrogen) 59 mg/dL (8.4-25.7); Calc. Creatinine Clearance 20 mL/min (70-130); Calcium 7.4 mg/dL (7.8-10.44); Carbon Dioxide 13 mmol/L (23-31); Chloride 113 mmol/L (98-107); Estimated GFR 23; Glucose 210 mg/dL (83-110); Potassium 5.1 mmol/L (3.5-5.1); Sodium 135 mmol/L (136-145)
[2024-07-25 06:03] LABS: Hematocrit 25.4 % (42.0-52.0); Hemoglobin 8.9 g/dL (14.0-18.0); Mean Corpuscular Hemoglobin 30.6 pg (27.0-31.0); Mean Corpuscular Volume 87.3 fL (78.0-98.0); Mean Platelet Volume 12.5 fL (7.4-10.4); Platelet Count 261 10x3/uL (130-400); RBC Distribution Width 17.4 % (11.5-14.5); Red Blood Cell (RBC) Count 2.91 mill/uL (4.70-6.10)
[2024-07-25 06:21] LABS: Anion Gap 12 mmol/L (10-20); BUN (Urea Nitrogen) 54 mg/dL (8.4-25.7); Calc. Creatinine Clearance 22 mL/min (70-130); Calcium 7.3 mg/dL (7.8-10.44); Carbon Dioxide 17 mmol/L (23-31); Chloride 112 mmol/L (98-107); Estimated GFR 26; Glucose 275 mg/dL (83-110); Potassium 4.8 mmol/L (3.5-5.1); Sodium 136 mmol/L (136-145)
[2024-07-25] MEDS ORDERED: Sodium Chloride 0.65% Nasal 44 ML BOT EA NARE PRN (11:51)
[2024-07-25] MEDS: Acetaminophen 325 MG TAB PO PRN (12:07)
[2024-07-25 13:12] LABS: Vancomycin, Trough 17.2 ug/mL
[2024-07-25 13:13] LABS: Anion Gap 14 mmol/L (10-20); BUN (Urea Nitrogen) 51 mg/dL (8.4-25.7); Calc. Creatinine Clearance 25 mL/min (70-130); Calcium 7.6 mg/dL (7.8-10.44); Carbon Dioxide 19 mmol/L (23-31); Chloride 110 mmol/L (98-107); Estimated GFR 30; Glucose 259 mg/dL (83-110); Potassium 5.3 mmol/L (3.5-5.1); Sodium 138 mmol/L (136-145)
[2024-07-25 14:59] LABS: Bilirubin Negative (Negative); Blood, Urine Trace (Negative); Clarity Clear (Clear); Glucose, Urine (Dipstick) 500 mg/dL (Negative); Ketone, Urine Negative (Negative); Leukocyte Negative Leu/uL (Negative); Nitrite Negative (Negative); Protein, Urine (Dipstick) 200 mg/dL (Neg-Trace); RBC/HPF 0-3 HPF (0-3); Specific Gravity, Urine 1.014 (1.002-1.036); Squamous Epithelial None Seen HPF (0-3); Urobilinogen Normal mg/dL (Less than 2); WBC/HPF 0-3 HPF (0-3)
[2024-07-25 15:02] LABS: Bacteria/HPF 1+ HPF (None Seen); Sperm/HPF Rare HPF (None Seen)
[2024-07-25] MEDS: Sodium Bicarbonate 150 MEQ in Dextrose 5% in Water 1,000 ML IV SCH (16:31)
[2024-07-25 16:40] LABS: Potassium 5.2 mmol/L (3.5-5.1)
[2024-07-25 18:22] LABS: Creatinine, Urine 45.8 mg/dL (22-328)
[2024-07-26] MEDS: Melatonin 3 MG TAB PO SCH ×2 (04:25→20:44)
[2024-07-26 05:48] LABS: Hematocrit 25.1 % (42.0-52.0); Hemoglobin 8.7 g/dL (14.0-18.0); Mean Corpuscular HGB CONC 34.7 g/dL (32.0-36.0); Mean Corpuscular Hemoglobin 30.2 pg (27.0-31.0); Mean Corpuscular Volume 87.2 fL (78.0-98.0); Mean Platelet Volume 12.2 fL (7.4-10.4); Platelet Count 262 10x3/uL (130-400); Red Blood Cell (RBC) Count 2.88 mill/uL (4.70-6.10)
[2024-07-26 06:02] LABS: Anion Gap 13 mmol/L (10-20); BUN (Urea Nitrogen) 48 mg/dL (8.4-25.7); Calc. Creatinine Clearance 26 mL/min (70-130); Calcium 7.2 mg/dL (7.8-10.44); Carbon Dioxide 22 mmol/L (23-31); Chloride 109 mmol/L (98-107); Estimated GFR 32; Glucose 271 mg/dL (83-110); Potassium 4.5 mmol/L (3.5-5.1); Sodium 139 mmol/L (136-145)
[2024-07-26] MEDS ORDERED: HumaLOG 300 UNITS/3 ML VIAL SC PRN (08:10)
[2024-07-26] MEDS: Calcitriol 0.25 MCG CAP PO SCH (08:58)
[2024-07-26] MEDS: Insulin Glargine 30 UNITS/0.3 ML VIAL SC SCH (08:59)
[2024-07-26] MEDS: EPOETIN ALFA-EPBX (ESRD) 10,000 UNITS/ML VIAL SC SCH (14:39)
[2024-07-26] MEDS: Insulin Lispro 100 UNIT/ML 10 ML VIAL SC PRN (18:20)
[2024-07-27 06:36] LABS: Hematocrit 24.5 % (42.0-52.0); Hemoglobin 8.2 g/dL (14.0-18.0); Mean Corpuscular HGB CONC 33.5 g/dL (32.0-36.0); Mean Corpuscular Hemoglobin 30.4 pg (27.0-31.0); Mean Corpuscular Volume 90.7 fL (78.0-98.0); Platelet Count 269 10x3/uL (130-400)
[2024-07-27 06:46] LABS: Anion Gap 12 mmol/L (10-20); BUN (Urea Nitrogen) 44 mg/dL (8.4-25.7); Calc. Creatinine Clearance 29 mL/min (70-130); Calcium 7.4 mg/dL (7.8-10.44); Carbon Dioxide 25 mmol/L (23-31); Chloride 109 mmol/L (98-107); Estimated GFR 36; Glucose 129 mg/dL (83-110); Potassium 4.5 mmol/L (3.5-5.1); Sodium 141 mmol/L (136-145)
[2024-07-27 07:55] LABS: Anisocytosis MODERATE=16-30 cells HPF (0-5); Burr Cells SLIGHT = 2-5 cells HPF (0-1); Eosinophils 5 % (0-10); Hypochromia SLIGHT = 6-15 cells HPF (0-5); Large Platelets 20.8 % (0-5); Lymphocytes 21 % (21-51); Monocytes 5 % (0-10); Neutrophil 69 % (42-75); Nucleated RBC (Manual Ct) 16 % (0); Platelet Adequacy Comment Platelets Normal; Polychromasia MODERATE = 3-4 cells HPF (0-2); Schistocytes MODERATE= 6-15 cells HPF (0-1); Target Cells SLIGHT = 2-5 cells HPF (0-1)
[2024-07-27] MEDS: Insulin Lispro 100 UNIT/ML 10 ML VIAL SC PRN (17:25)
[2024-07-27] MEDS: hydrALAZINE 20 MG/ML VIAL SLOW IVP SCH (21:56)
[2024-07-28 08:51] LABS: Hematocrit 28.9 % (42.0-52.0); Hemoglobin 9.9 g/dL (14.0-18.0); Mean Corpuscular HGB CONC 34.3 g/dL (32.0-36.0); Mean Corpuscular Volume 90.6 fL (78.0-98.0); Mean Platelet Volume 11.6 fL (7.4-10.4); Platelet Count 299 10x3/uL (130-400); RBC Distribution Width 17.1 % (11.5-14.5); Red Blood Cell (RBC) Count 3.19 mill/uL (4.70-6.10)
[2024-07-28 09:23] LABS: Anion Gap 13 mmol/L (10-20); BUN (Urea Nitrogen) 39 mg/dL (8.4-25.7); Calc. Creatinine Clearance 29 mL/min (70-130); Calcium 8.1 mg/dL (7.8-10.44); Carbon Dioxide 21 mmol/L (23-31); Chloride 110 mmol/L (98-107); Estimated GFR 36; Glucose 234 mg/dL (83-110); Potassium 5.2 mmol/L (3.5-5.1); Sodium 139 mmol/L (136-145)
[2024-07-28 12:24] VITALS: BP 151/83; TEMP 98.8
[2024-07-28 15:14] LABS: Albumin-Ur 50.6 % (.); Alpha 1 - Ur 2.3 % (.); Alpha 2 - Ur 10.5 % (.); Beta-Ur 19.5 % (.); M-Spike,% Not Observed % (Not Observed); Protein, Urine 244.2 mg/dL (Not Estab.)
[2024-07-29 15:12] LABS: A/G Ratio 0.7 (0.7-1.7); Albumin 2.1 g/dL (2.9-4.4); Alpha 1 0.3 g/dL (0.0-0.4); Alpha 2 0.6 g/dL (0.4-1.0); Beta 0.8 g/dL (0.7-1.3); Gamma 1.3 g/dL (0.4-1.8); Globulin, Total 2.9 g/dL (2.2-3.9); M-Spike Not Observed g/dL (Not Observed); Protein Electrophoresis Intrp Note: (.)
[2024-08-01] MEDS ORDERED: Ergocalciferol 1.25 MG(50,000 UNITS) CAP PO SCH (09:00)
== END 2024-07-28 12:25 | disposition home or self-care (01) | DRG 483 ==
LOC: SDC 07:29 → SURG B 13:18
PROVIDERS: ADMIT Orthopaedic Surgery; ATTEND Orthopaedic Surgery
PROC: 0RPJ0J6 Removal of Synthetic Substitute from Right Shoulder Joint, Humeral Surface, Open Approach (ICD-10-PCS; principal; 2024-07-22)
PROC: 0RRJ0J6 Replacement of Right Shoulder Joint with Synthetic Substitute, Humeral Surface, Open Approach (ICD-10-PCS; 2024-07-22)
DX: T84.59XA Infection and inflammatory reaction due to other internal joint prosthesis, initial encounter (principal); N17.9 Acute kidney failure, unspecified; E87.20 Acidosis, unspecified; M00.811 Arthritis due to other bacteria, right shoulder; K21.9 Gastro-esophageal reflux disease without esophagitis; Z98.890 Other specified postprocedural states; Z79.899 Other long term (current) drug therapy; E11.22 Type 2 diabetes mellitus with diabetic chronic kidney disease; N40.0 Benign prostatic hyperplasia without lower urinary tract symptoms; Z91.041 Radiographic dye allergy status; Z88.1 Allergy status to other antibiotic agents; F17.210 Nicotine dependence, cigarettes, uncomplicated; E11.65 Type 2 diabetes mellitus with hyperglycemia; E11.40 Type 2 diabetes mellitus with diabetic neuropathy, unspecified; N18.31 Chronic kidney disease, stage 3a; I12.9 Hypertensive chronic kidney disease with stage 1 through stage 4 chronic kidney disease, or unspecified chronic kidney disease; I48.0 Paroxysmal atrial fibrillation; D63.1 Anemia in chronic kidney disease; Z01.818 Encounter for other preprocedural examination; Z96.611 Presence of right artificial shoulder joint
CPT/HCPCS: 36415; 36416; 36430; 74176; 76770; 80048; 80202; 81001; 82040; 82306; 82570; 83605; 83970; 84155; 84156; 84165; 84166; 85025; 85027; 85610; 86141; 86850; 86900; 86901; 87070; 87081; 87205; 88305; 93005; 93010; 97139; C1713; C1776; C1889; J0360; J0696; J1815; J2405; J2704; J2795; J3010; J3370; J7030; J7070; J7999; P9016; Q5105

== ENCOUNTER 2024-08-09 23:14 | Emergency (ER) | payer MEDICARE ==
[2024-08-10 00:02] LABS: #Basophils 0.05 10x3/uL (0.0-0.2); %Lymphocytes 34.1 % (21.0-51.0); %Monocytes 14.1 % (0.0-10.0); %Neutrophils 42.4 % (42.0-75.0); Hematocrit 31.9 % (42.0-52.0); Hemoglobin 10.3 g/dL (14.0-18.0); Mean Corpuscular HGB CONC 32.3 g/dL (32.0-36.0); Mean Platelet Volume 12.2 fL (7.4-10.4); Platelet Count 314 10x3/uL (130-400); RBC Distribution Width 17.2 % (11.5-14.5); Red Blood Cell (RBC) Count 3.43 mill/uL (4.70-6.10)
[2024-08-10 00:51] LABS: ALT (SGPT) 36 U/L (Less than 45); Albumin 2.3 g/dL (3.1-4.5); Alkaline Phosphatase 159 U/L (40-110); Anion Gap 15 mmol/L (10-20); BUN (Urea Nitrogen) 61 mg/dL (8.4-25.7); Bilirubin, Total 0.2 mg/dL (0.3-1.2); Calc. Creatinine Clearance 0 mL/min (70-130); Calcium 7.6 mg/dL (7.8-10.44); Carbon Dioxide 11 mmol/L (23-31); Chloride 117 mmol/L (98-107); Estimated GFR 22; Globulin 3.8 g/dL (2.4-3.5); Glucose 214 mg/dL (83-110); Potassium 4.4 mmol/L (3.5-5.1); Protein, Total 6.1 g/dL (5.8-8.1); Sodium 139 mmol/L (136-145)
[2024-08-10 01:15] LABS: AST (SGOT) 106 U/L (11-34)
== END 2024-08-10 01:09 | disposition home or self-care (01) ==
LOC: ERS 23:14
DX: I12.9 Hypertensive chronic kidney disease with stage 1 through stage 4 chronic kidney disease, or unspecified chronic kidney disease (principal); E11.22 Type 2 diabetes mellitus with diabetic chronic kidney disease; N18.30 Chronic kidney disease, stage 3 unspecified; F17.210 Nicotine dependence, cigarettes, uncomplicated; Z79.4 Long term (current) use of insulin; Z79.01 Long term (current) use of anticoagulants; Z79.899 Other long term (current) drug therapy
CPT/HCPCS: 80048; 85025; 86140; 99283

== ENCOUNTER 2024-08-12 10:15 | Inpatient (IN) | payer MEDICARE ==
[2024-08-12 11:16] LABS: ALT (SGPT) 17 U/L (Less than 45); AST (SGOT) 26 U/L (11-34); Albumin 2.2 g/dL (3.1-4.5); Alkaline Phosphatase 130 U/L (40-110); Anion Gap 16 mmol/L (10-20); BUN (Urea Nitrogen) 81 mg/dL (8.4-25.7); Bilirubin, Total 0.2 mg/dL (0.3-1.2); Calc. Creatinine Clearance 0 mL/min (70-130); Calcium 7.7 mg/dL (7.8-10.44); Carbon Dioxide 15 mmol/L (23-31); Chloride 109 mmol/L (98-107); Estimated GFR 17; Globulin 3.8 g/dL (2.4-3.5); Glucose 129 mg/dL (83-110); Potassium 3.7 mmol/L (3.5-5.1); Sodium 136 mmol/L (136-145)
[2024-08-12 11:57] LABS: Hematocrit 27.6 % (42.0-52.0); Hemoglobin 9.1 g/dL (14.0-18.0); Mean Corpuscular Hemoglobin 29.7 pg (27.0-31.0); Mean Corpuscular Volume 90.2 fL (78.0-98.0); Mean Platelet Volume 12.7 fL (7.4-10.4); Platelet Count 282 10x3/uL (130-400); RBC Distribution Width 16.8 % (11.5-14.5); Red Blood Cell (RBC) Count 3.06 mill/uL (4.70-6.10)
[2024-08-12 12:07] LABS: Anisocytosis MARKED = >30 cells HPF (0-5); Band 3 % (5-11); Blast 1 % (0-0); Burr Cells SLIGHT = 2-5 cells HPF (0-1); Lymphocytes 5 % (21-51); Macrocytosis SLIGHT = 6-15 cells HPF (0-5); Microcytosis SLIGHT = 6-15 cells HPF (0-5); Monocytes 12 % (0-10); Neutrophil 76 % (42-75); Platelet Adequacy Comment Platelets Normal; Poikilocytosis SLIGHT = 6-15 cells HPF (0-5); Polychromasia SLIGHT = 2-3 cells HPF (0-2); Reactive Lymphocytes 3 % (0-10); Schistocytes SLIGHT = 2-5 cells HPF (0-1); Toxic Granulation SLIGHT
[2024-08-12] MEDS ORDERED: cefTRIAXone (ROCEPHIN) 2 GM VIAL ONE (13:19)
[2024-08-12] MEDS ORDERED: Morphine 4 MG/ML VIAL ONE (13:19)
[2024-08-12] MEDS ORDERED: Sodium Chloride 0.9% 100 ML ONE (13:19)
[2024-08-12] MEDS ORDERED: Glucagon 1 MG/ML KIT IM PRN ×2 (14:05→14:07)
[2024-08-12] MEDS ORDERED: Dextrose 50% Abboject 50 ML SYRINGE SLOW IVP PRN ×2 (14:05→14:07)
[2024-08-12] MEDS ORDERED: Dextrose 5% in Water 1,000 ML IV PRN ×2 (14:05→14:07)
[2024-08-12] MEDS ORDERED: Ondansetron PF 4 MG/2 ML Vial IVP PRN (14:05)
[2024-08-12] MEDS: Sodium Chloride 0.9% 1,000 ML IV SCH (17:40)
[2024-08-12 17:49] VITALS: BMI 17.3
[2024-08-12] MEDS: Insulin Lispro 100 UNIT/ML 10 ML VIAL SC PRN ×2 (18:47→21:17)
[2024-08-12 20:21] LABS: Magnesium 1.6 mg/dL (1.6-2.6)
[2024-08-12] MEDS: Albumin 25% 25 GM (100 mL) BOT IVPB SCH (20:41)
[2024-08-12] MEDS: Metoprolol Succinate XL 25 MG ER.TAB PO SCH (20:41)
[2024-08-12] MEDS: traMADol HCl 50 MG TAB PO PRN (20:42)
[2024-08-12] MEDS: Sodium Bicarbonate 150 MEQ in Sterile Water 1,000 ML IV SCH (23:18)
[2024-08-12] MEDS: EPOETIN ALFA-EPBX (ESRD) 10,000 UNITS/ML VIAL SC SCH (23:30)
[2024-08-13 00:27] LABS: Bacteria/HPF None Seen HPF (None Seen); Bilirubin Negative (Negative); Blood, Urine Negative (Negative); CAUTI Indications for Culture Fever or rigors; Clarity Clear (Clear); Glucose, Urine (Dipstick) Normal (Negative); Ketone, Urine Negative (Negative); Leukocyte Negative Leu/uL (Negative); Nitrite Negative (Negative); Protein, Urine (Dipstick) 100 mg/dL (Neg-Trace); RBC/HPF 0-3 HPF (0-3); Specific Gravity, Urine 1.011 (1.002-1.036); Squamous Epithelial 0-3 HPF (0-3); Urobilinogen Normal mg/dL (Less than 2); WBC/HPF 0-3 HPF (0-3); pH, Urine 5.5 (5.0-9.0)
[2024-08-13 00:29] LABS: Urine Culture Reflex No No
[2024-08-13 04:55] LABS: #Basophils Less than 0.03 10x3/uL (0.0-0.2); %Basophils 0.2 % (0.0-1.0); %Eosinophils 2.7 % (0.0-10.0); %Lymphocytes 15.4 % (21.0-51.0); %Monocytes 18.8 % (0.0-10.0); %Neutrophils 62.7 % (42.0-75.0); Hematocrit 24.2 % (42.0-52.0); Hemoglobin 8.1 g/dL (14.0-18.0); Mean Corpuscular HGB CONC 33.5 g/dL (32.0-36.0); Mean Corpuscular Hemoglobin 29.9 pg (27.0-31.0); Mean Corpuscular Volume 89.3 fL (78.0-98.0); Platelet Count 244 10x3/uL (130-400); RBC Distribution Width 16.7 % (11.5-14.5); Red Blood Cell (RBC) Count 2.71 mill/uL (4.70-6.10)
[2024-08-13 05:25] LABS: Anion Gap 16 mmol/L (10-20); BUN (Urea Nitrogen) 84 mg/dL (8.4-25.7); Calc. Creatinine Clearance 16 mL/min (70-130); Calcium 7.6 mg/dL (7.8-10.44); Carbon Dioxide 14 mmol/L (23-31); Chloride 110 mmol/L (98-107); Estimated GFR 18; Glucose 297 mg/dL (83-110); Potassium 3.9 mmol/L (3.5-5.1); Sodium 136 mmol/L (136-145)
[2024-08-13] MEDS: traMADol HCl 50 MG TAB PO PRN (08:16)
[2024-08-13] MEDS: Heparin 5,000 UNITS/ML VIAL SC SCH (11:06)
[2024-08-13] MEDS: Metoprolol Succinate XL 25 MG ER.TAB PO SCH (11:06)
[2024-08-13] MEDS: cefTRIAXone\\ROCEPHIN 2 GM in Sodium Chloride 0.9% 100 ML IVPB SCH (12:41)
[2024-08-13] MEDS: Ergocalciferol 1.25 MG(50,000 UNITS) CAP PO SCH (12:44)
[2024-08-13] MEDS: Albumin 25% 25 GM (100 mL) BOT IVPB SCH (13:24)
[2024-08-13] MEDS: Sodium Bicarbonate 150 MEQ in Dextrose 5% in Water 1,000 ML IV SCH (14:26)
[2024-08-13 17:04] VITALS: BMI 17.3
[2024-08-14 05:20] LABS: Anion Gap 17 mmol/L (10-20); BUN (Urea Nitrogen) 75 mg/dL (8.4-25.7); Calc. Creatinine Clearance 18 mL/min (70-130); Calcium 7.7 mg/dL (7.8-10.44); Carbon Dioxide 18 mmol/L (23-31); Chloride 103 mmol/L (98-107); Estimated GFR 21; Glucose 263 mg/dL (83-110); Potassium 3.3 mmol/L (3.5-5.1); Sodium 135 mmol/L (136-145)
[2024-08-14 08:53] LABS: #Basophils 0.03 10x3/uL (0.0-0.2); %Basophils 0.4 % (0.0-1.0); %Eosinophils 2.3 % (0.0-10.0); %Lymphocytes 20.6 % (21.0-51.0); %Monocytes 15.7 % (0.0-10.0); %Neutrophils 60.6 % (42.0-75.0); Hematocrit 24.7 % (42.0-52.0); Hemoglobin 8.5 g/dL (14.0-18.0); Mean Corpuscular HGB CONC 34.4 g/dL (32.0-36.0); Mean Corpuscular Hemoglobin 29.8 pg (27.0-31.0); Mean Corpuscular Volume 86.7 fL (78.0-98.0); Mean Platelet Volume 12.7 fL (7.4-10.4); Platelet Count 276 10x3/uL (130-400); RBC Distribution Width 16.4 % (11.5-14.5); Red Blood Cell (RBC) Count 2.85 mill/uL (4.70-6.10)
[2024-08-14] MEDS: Insulin Glargine 30 UNITS/0.3 ML VIAL SC SCH (09:12)
[2024-08-14] MEDS: Potassium Bicarbonate/Cit Ac 20 MEQ TAB PO SCH (09:14)
[2024-08-14] MEDS: Sodium Bicarbonate 150 MEQ in Dextrose 5% in Water 1,000 ML IV SCH (10:33)
[2024-08-14] MEDS: Methocarbamol 500 MG TAB PO PRN (11:41)
[2024-08-15 06:17] LABS: Phosphorus 4.5 mg/dL (2.5-4.5)
[2024-08-15 06:18] LABS: Anion Gap 15 mmol/L (10-20); BUN (Urea Nitrogen) 59 mg/dL (8.4-25.7); Calc. Creatinine Clearance 23 mL/min (70-130); Calcium 7.9 mg/dL (7.8-10.44); Carbon Dioxide 25 mmol/L (23-31); Estimated GFR 28; Glucose 159 mg/dL (83-110); Magnesium 1.5 mg/dL (1.6-2.6); Potassium 3.1 mmol/L (3.5-5.1)
[2024-08-15 06:21] LABS: Chloride 101 mmol/L (98-107); Sodium 138 mmol/L (136-145)
[2024-08-15 06:25] LABS: Anisocytosis SLIGHT = 6-15 cells HPF (0-5); Band 9 % (5-11); Eosinophils 2 % (0-10); Hypochromia SLIGHT = 6-15 cells HPF (0-5); Large Platelets 16.8 % (0-5); Lymphocytes 14 % (21-51); Monocytes 7 % (0-10); Neutrophil 67 % (42-75); Nucleated RBC (Manual Ct) 1 % (0); Platelet Adequacy Comment Platelets Normal; Polychromasia SLIGHT = 2-3 cells HPF (0-2); Reactive Lymphocytes 1 % (0-10); Target Cells MODERATE= 6-15 cells HPF (0-1)
[2024-08-15 06:30] LABS: #Basophils Less than 0.03 10x3/uL (0.0-0.2); %Basophils 0.1 % (0.0-1.0); %Lymphocytes 20.5 % (21.0-51.0); %Monocytes 19.5 % (0.0-10.0); %Neutrophils 57.8 % (42.0-75.0); Hematocrit 23.9 % (42.0-52.0); Hemoglobin 8.3 g/dL (14.0-18.0); Mean Corpuscular HGB CONC 34.7 g/dL (32.0-36.0); Mean Corpuscular Hemoglobin 29.4 pg (27.0-31.0); Mean Corpuscular Volume 84.8 fL (78.0-98.0); Mean Platelet Volume 12.6 fL (7.4-10.4); Platelet Count 276 10x3/uL (130-400); RBC Distribution Width 16.1 % (11.5-14.5); Red Blood Cell (RBC) Count 2.82 mill/uL (4.70-6.10)
[2024-08-15] MEDS: Insulin Glargine 30 UNITS/0.3 ML VIAL SC SCH (08:21)
[2024-08-15] MEDS: Potassium Bicarbonate/Cit Ac 20 MEQ TAB PO SCH (10:39)
[2024-08-15] MEDS: Sodium Chloride 0.9% 1,000 ML IV SCH (12:13)
[2024-08-15] MEDS: Magnesium 2 GM/50 ML(in water) 2 GM in Premix 1 BAG IVPB SCH (13:31)
[2024-08-15] MEDS: Acetaminophen 325 MG TAB PO PRN (16:47)
[2024-08-16] MEDS: Melatonin 3 MG TAB PO PRN (03:11)
[2024-08-16] MEDS: Insulin Glargine 30 UNITS/0.3 ML VIAL SC SCH (08:55)
[2024-08-16 09:09] LABS: Hematocrit 26.3 % (42.0-52.0); Hemoglobin 9.2 g/dL (14.0-18.0); Mean Corpuscular Hemoglobin 29.8 pg (27.0-31.0); Mean Corpuscular Volume 85.1 fL (78.0-98.0); Mean Platelet Volume 12.5 fL (7.4-10.4); Platelet Count 290 10x3/uL (130-400); RBC Distribution Width 16.6 % (11.5-14.5); Red Blood Cell (RBC) Count 3.09 mill/uL (4.70-6.10)
[2024-08-16 09:22] LABS: Anion Gap 14 mmol/L (10-20); BUN (Urea Nitrogen) 49 mg/dL (8.4-25.7); Calc. Creatinine Clearance 29 mL/min (70-130); Calcium 8.3 mg/dL (7.8-10.44); Carbon Dioxide 25 mmol/L (23-31); Chloride 104 mmol/L (98-107); Estimated GFR 36; Glucose 182 mg/dL (83-110); Sodium 139 mmol/L (136-145)
[2024-08-16 09:34] LABS: Anisocytosis MODERATE=16-30 cells HPF (0-5); Band 4 % (5-11); Burr Cells MODERATE= 6-15 cells HPF (0-1); Eosinophils 2 % (0-10); Hypochromia SLIGHT = 6-15 cells HPF (0-5); Lymphocytes 12 % (21-51); Macrocytosis SLIGHT = 6-15 cells HPF (0-5); Monocytes 12 % (0-10); Neutrophil 69 % (42-75); Platelet Adequacy Comment Platelets Normal; Polychromasia MODERATE = 3-4 cells HPF (0-2); Schistocytes SLIGHT = 2-5 cells HPF (0-1)
[2024-08-16] MEDS ORDERED: Diphenoxylate HCl/Atropine Tablet PO PRN (14:29)
[2024-08-16] MEDS: Amlodipine 5 MG TAB PO SCH (16:59)
[2024-08-16] MEDS: Diphenoxylate HCl/Atropine Tablet PO SCH (17:00)
[2024-08-16] MEDS: Pancrelipase DR 12,000 1 CAP PO SCH (17:01)
[2024-08-16] MEDS: Tamsulosin HCl 0.4 MG CAP PO SCH (20:12)
[2024-08-16] MEDS: Apixaban 5 MG TAB PO SCH (20:12)
[2024-08-16] MEDS: Losartan 25 MG TAB PO SCH (20:12)
[2024-08-17] MEDS: diphenhydrAMINE 25 MG CAP PO SCH (02:37)
[2024-08-17] MEDS: Cyanocobalamin (Vitamin B-12) 1,000 MCG TAB PO SCH (08:01)
[2024-08-17] MEDS: Cholecalciferol 1,000 UNITS (25 MCG) TAB PO SCH (08:01)
[2024-08-17] MEDS: Clopidogrel Bisulfate 75 MG TAB PO SCH (08:01)
[2024-08-17] MEDS: Amlodipine 5 MG TAB PO SCH (08:01)
[2024-08-17] MEDS: Pantoprazole 40 MG DR.TAB PO SCH (08:01)
[2024-08-17 11:33] VITALS: TEMP 98.1
[2024-08-17 15:50] VITALS: BP 176/100
== END 2024-08-17 18:00 | DRG 536 ==
LOC: ERS 10:15 → SURG B 14:05
PROVIDERS: ADMIT Surgery; ATTEND Surgery
PROC: 30233J1 Transfusion of Nonautologous Serum Albumin into Peripheral Vein, Percutaneous Approach (ICD-10-PCS; principal; 2024-08-12)
DX: S72.011A Unspecified intracapsular fracture of right femur, initial encounter for closed fracture (principal); T84.51XA Infection and inflammatory reaction due to internal right hip prosthesis, initial encounter; E87.20 Acidosis, unspecified; N17.9 Acute kidney failure, unspecified; E46 Unspecified protein-calorie malnutrition; Z68.1 Body mass index [BMI] 19.9 or less, adult; N18.4 Chronic kidney disease, stage 4 (severe); E11.22 Type 2 diabetes mellitus with diabetic chronic kidney disease; W01.0XXA Fall on same level from slipping, tripping and stumbling without subsequent striking against object, initial encounter; E11.40 Type 2 diabetes mellitus with diabetic neuropathy, unspecified; K21.9 Gastro-esophageal reflux disease without esophagitis; N40.0 Benign prostatic hyperplasia without lower urinary tract symptoms; D63.1 Anemia in chronic kidney disease; F10.90 Alcohol use, unspecified, uncomplicated; F17.210 Nicotine dependence, cigarettes, uncomplicated; Y83.8 Other surgical procedures as the cause of abnormal reaction of the patient, or of later complication, without mention of misadventure at the time of the procedure; I48.0 Paroxysmal atrial fibrillation; E88.09 Other disorders of plasma-protein metabolism, not elsewhere classified; E11.65 Type 2 diabetes mellitus with hyperglycemia; E11.649 Type 2 diabetes mellitus with hypoglycemia without coma; E11.51 Type 2 diabetes mellitus with diabetic peripheral angiopathy without gangrene; Z88.1 Allergy status to other antibiotic agents; Z91.041 Radiographic dye allergy status; I12.9 Hypertensive chronic kidney disease with stage 1 through stage 4 chronic kidney disease, or unspecified chronic kidney disease; N18.30 Chronic kidney disease, stage 3 unspecified; Z79.4 Long term (current) use of insulin; Z79.01 Long term (current) use of anticoagulants; Z79.899 Other long term (current) drug therapy
CPT/HCPCS: 36415; 36416; 70450; 72170; 76770; 80048; 80053; 81001; 83605; 83735; 84100; 85025; 86140; 86141; 87070; 87205; 96374; 96375; 97139; 99283; A4217; J0696; J1644; J1815; J2270; J3475; J7030; J7070; P9047; Q5105

== ENCOUNTER 2025-01-01 15:03 | Inpatient (IN) | payer MEDICARE ==
[~2025-01-01 15:03] MED LIST: Heparin 10,000 UNITS/ 10 ML VIAL ONE
[2025-01-01 16:12] LABS: #Basophils 0.03 10x3/uL (0.0-0.2); #Eosinophils Less than 0.03 10x3/uL (0.0-0.7); #Monocytes 1.45 10x3/uL (0.11-0.59); #Neutrophils 15.74 10x3/uL (1.40-6.50); %Basophils 0.2 % (0.0-1.0); %Eosinophils 0.0 % (0.0-10.0); %Lymphocytes 10.4 % (21.0-51.0); %Monocytes 7.5 % (0.0-10.0); %Neutrophils 81.4 % (42.0-75.0); Hematocrit 30.3 % (42.0-52.0); Hemoglobin 10.0 g/dL (14.0-18.0); Mean Corpuscular Hemoglobin 27.7 pg (27.0-31.0); Mean Corpuscular Volume 83.9 fL (78.0-98.0); Platelet Count 253 10x3/uL (130-400); Red Blood Cell (RBC) Count 3.61 mill/uL (4.70-6.10); White Blood Cell (WBC) Count 19.34 10x3/uL (4.8-10.8)
[2025-01-01] MEDS ORDERED: Cefepime 2 GM VIAL ONE (16:12)
[2025-01-01] MEDS ORDERED: Vancomycin 1 GM/200 ML (FROZEN) BAG ONE (16:13)
[2025-01-01 16:28] LABS: Actual Bicarbonate (HCO3v) 20.9 mEq/L (22-28); Analyzer IN Cardio ER; Base Excess -3.1 mEq/L (-2.0 to +3.0); Calcium, Ionized (venous) 0.98 mmol/L (1.16-1.32); Chloride (VBG) 104 mmol/L (98-106); Hematocrit-VBG 32 % (42.0-52.0); Hemoglobin (Hb) 10.8 g/dL (12.6-17.4); Potassium (VBG) 4.18 mmol/L (3.70-5.30); Sodium 137 mmol/L (133-146)
[2025-01-01 16:46] LABS: INR-International Normal Ratio 1.5; Prothrombin Time 17.7 sec (12.0-14.7)
[2025-01-01 16:47] LABS: PTT 37.6 sec (22.9-36.1)
[2025-01-01 16:56] LABS: ALT (SGPT) 13 U/L (Less than 45); AST (SGOT) 14 U/L (11-34); Albumin 1.7 g/dL (3.1-4.5); Alkaline Phosphatase 146 U/L (40-110); Anion Gap 13 mmol/L (10-20); BUN (Urea Nitrogen) 38 mg/dL (8.4-25.7); Bilirubin, Total 0.4 mg/dL (0.3-1.2); Calc. Creatinine Clearance 0 mL/min (70-130); Calcium 7.0 mg/dL (7.8-10.44); Carbon Dioxide 23 mmol/L (23-31); Chloride 108 mmol/L (98-107); Globulin 3.7 g/dL (2.4-3.5); Glucose 99 mg/dL (83-110); Potassium 4.3 mmol/L (3.5-5.1); Sodium 140 mmol/L (136-145)
[2025-01-01 16:57] LABS: Troponin I 0.021 ng/mL (< 0.028)
[2025-01-01 19:03] LABS: HBSAB Concentration Less than 8.00 mIU/mL; Hep B Core Total Ab NONREACTIVE (NonReactive); Hep B Core Total Index 0.16 S/CO (0-0.79); Hep B Surf Ag NONREACTIVE S/CO (NonReactive); Hep C IgG Ab NONREACTIVE S/CO (NonReactive); Hep C Index 0.53 S/CO (0-0.79)
[2025-01-01 19:18] LABS: CAUTI Indications for Culture < 2yrs of age; Glucose, Urine (Dipstick) Normal (Negative); Leukocyte 500 Leu/uL (Negative); Protein, Urine (Dipstick) 50 mg/dL (Neg-Trace); Specific Gravity, Urine 1.009 (1.002-1.036); WBC/HPF 21-50 HPF (0-3); Yeast-Budding 2+ HPF (None Seen)
[2025-01-01 19:19] LABS: Bacteria/HPF 1+ HPF (None Seen)
[2025-01-01 19:20] LABS: Urine Culture Reflex Yes Yes
[2025-01-01 19:36] LABS: Troponin I 0.022 ng/mL (< 0.028)
[2025-01-01] MEDS ORDERED: Ondansetron PF 4 MG/2 ML Vial IVP PRN (20:10)
[2025-01-01] MEDS ORDERED: Glucagon 1 MG/ML KIT IM PRN (20:17)
[2025-01-01] MEDS ORDERED: cefTRIAXone\\ROCEPHIN 2 GM in Sodium Chloride 0.9% 100 ML IVPB SCH (21:00)
[2025-01-02 01:15] VITALS: BMI 15.3
[2025-01-02 01:48] LABS: Troponin I 0.024 ng/mL (< 0.028)
[2025-01-02] MEDS: Heparin 5,000 UNITS/ML VIAL SC SCH (02:33)
[2025-01-02 02:35] LABS: Influenza A by NAA Not Detected (NotDetected); Influenza B by NAA Not Detected (NotDetected); SARS-CoV-2 NAA Rapid Test Not Detected (NotDetected)
[2025-01-02] MEDS: Acetaminophen 325 MG TAB PO PRN (02:48)
[2025-01-02 05:37] LABS: ALT (SGPT) 11 U/L (Less than 45); AST (SGOT) 16 U/L (11-34); Albumin 1.3 g/dL (3.1-4.5); Alkaline Phosphatase 114 U/L (40-110); Anion Gap 9 mmol/L (10-20); BUN (Urea Nitrogen) 15 mg/dL (8.4-25.7); Bilirubin, Total 0.4 mg/dL (0.3-1.2); Calc. Creatinine Clearance 29 mL/min (70-130); Calcium 6.7 mg/dL (7.8-10.44); Carbon Dioxide 25 mmol/L (23-31); Chloride 107 mmol/L (98-107); Globulin 2.9 g/dL (2.4-3.5); Glucose 201 mg/dL (83-110); Hematocrit 23.7 % (42.0-52.0); Hemoglobin 8.1 g/dL (14.0-18.0); Mean Corpuscular Hemoglobin 28.1 pg (27.0-31.0); Mean Corpuscular Volume 82.3 fL (78.0-98.0); Platelet Count 186 10x3/uL (130-400); Potassium 3.2 mmol/L (3.5-5.1); Red Blood Cell (RBC) Count 2.88 mill/uL (4.70-6.10); Sodium 138 mmol/L (136-145); White Blood Cell (WBC) Count 17.21 10x3/uL (4.8-10.8)
[2025-01-02 08:10] LABS: Anisocytosis SLIGHT = 6-15 cells HPF (0-5); Burr Cells MODERATE= 6-15 cells HPF (0-1); Microcytosis SLIGHT = 6-15 cells HPF (0-5); Platelet Adequacy Comment Platelets Normal; Poikilocytosis SLIGHT = 6-15 cells HPF (0-5); Polychromasia SLIGHT = 2-3 cells HPF (0-2); Schistocytes SLIGHT = 2-5 cells HPF (0-1); Smudge Cells 5.9 %; Target Cells MODERATE= 6-15 cells HPF (0-1)
[2025-01-02] MEDS ORDERED: Heparin 10,000 UNITS/ 10 ML VIAL ONE (10:34)
[2025-01-02] MEDS: Albumin 25% 25 GM (100 mL) BOT IVPB SCH (12:44)
[2025-01-03 04:45] LABS: #Basophils 0.03 10x3/uL (0.0-0.2); #Eosinophils 0.06 10x3/uL (0.0-0.7); #Monocytes 1.26 10x3/uL (0.11-0.59); #Neutrophils 8.30 10x3/uL (1.40-6.50); %Basophils 0.3 % (0.0-1.0); %Eosinophils 0.6 % (0.0-10.0); %Lymphocytes 9.9 % (21.0-51.0); %Monocytes 11.7 % (0.0-10.0); %Neutrophils 77.1 % (42.0-75.0); Hematocrit 22.1 % (42.0-52.0); Hemoglobin 7.4 g/dL (14.0-18.0); Mean Corpuscular Hemoglobin 28.0 pg (27.0-31.0); Mean Corpuscular Volume 83.7 fL (78.0-98.0); Platelet Count 194 10x3/uL (130-400); Red Blood Cell (RBC) Count 2.64 mill/uL (4.70-6.10); White Blood Cell (WBC) Count 10.75 10x3/uL (4.8-10.8)
[2025-01-03 05:00] LABS: Anion Gap 14 mmol/L (10-20); BUN (Urea Nitrogen) 30 mg/dL (8.4-25.7); Calc. Creatinine Clearance 20 mL/min (70-130); Calcium 7.1 mg/dL (7.8-10.44); Carbon Dioxide 23 mmol/L (23-31); Chloride 105 mmol/L (98-107); Glucose 387 mg/dL (83-110); Potassium 3.5 mmol/L (3.5-5.1); Sodium 138 mmol/L (136-145)
[2025-01-03 10:56] VITALS: BMI 15.3
[2025-01-03] MEDS ORDERED: Heparin 10,000 UNITS/ 10 ML VIAL ONE (11:03)
[2025-01-04 04:44] LABS: #Basophils 0.04 10x3/uL (0.0-0.2); #Eosinophils 0.27 10x3/uL (0.0-0.7); #Monocytes 1.31 10x3/uL (0.11-0.59); #Neutrophils 6.54 10x3/uL (1.40-6.50); %Basophils 0.4 % (0.0-1.0); %Eosinophils 2.7 % (0.0-10.0); %Lymphocytes 17.4 % (21.0-51.0); %Monocytes 13.2 % (0.0-10.0); %Neutrophils 65.9 % (42.0-75.0); Hematocrit 23.2 % (42.0-52.0); Hemoglobin 8.0 g/dL (14.0-18.0); Mean Corpuscular Hemoglobin 28.2 pg (27.0-31.0); Mean Corpuscular Volume 81.7 fL (78.0-98.0); Platelet Count 198 10x3/uL (130-400); Red Blood Cell (RBC) Count 2.84 mill/uL (4.70-6.10); White Blood Cell (WBC) Count 9.93 10x3/uL (4.8-10.8)
[2025-01-04 04:53] LABS: Anion Gap 12 mmol/L (10-20); BUN (Urea Nitrogen) 18 mg/dL (8.4-25.7); Calc. Creatinine Clearance 27 mL/min (70-130); Calcium 7.2 mg/dL (7.8-10.44); Carbon Dioxide 24 mmol/L (23-31); Chloride 107 mmol/L (98-107); Glucose 172 mg/dL (83-110); Potassium 4.2 mmol/L (3.5-5.1); Sodium 139 mmol/L (136-145)
[2025-01-04] MEDS: Mometasone 200 MCG/Formoterol 5 MCG 120 PUFF INHALER INH SCH (06:40)
[2025-01-04] MEDS ORDERED: Lidocaine 1% PF 5 ML VIAL ONE (10:17)
[2025-01-04] MEDS ORDERED: fentaNYL PF 100 MCG/2 ML SYRINGE ONE (10:17)
[2025-01-04] MEDS ORDERED: PROPOFOL 20 ML ONE (10:17)
[2025-01-04] MEDS ORDERED: Ondansetron PF 4 MG/2 ML Vial ONE (10:17)
[2025-01-04] MEDS ORDERED: PHENYLEPHRINE-NS 100 MCG/ML 10 ML SYRINGE ONE (10:46)
[2025-01-04] MEDS: cefTRIAXone Sodium 2,000 MG in Syringe 0 ML IVPB SCH (12:27)
[2025-01-04] MEDS ORDERED: cefTRIAXone\\ROCEPHIN 2 GM in Sodium Chloride 0.9% 100 ML IVPB SCH (13:00)
[2025-01-04] MEDS: EPOETIN ALFA-EPBX (ESRD) 10,000 UNITS/ML VIAL IVP SCH (13:47)
[2025-01-04] MEDS: Vancomycin 1 GM in Premix 1 BAG IVPB SCH (18:09)
[2025-01-04] MEDS: cefTRIAXone\\ROCEPHIN 2 GM in Sodium Chloride 0.9% 100 ML IVPB SCH (19:54)
[2025-01-05 04:32] LABS: #Basophils Less than 0.03 10x3/uL (0.0-0.2); #Eosinophils 0.05 10x3/uL (0.0-0.7); #Monocytes 1.13 10x3/uL (0.11-0.59); #Neutrophils 5.96 10x3/uL (1.40-6.50); %Basophils 0.1 % (0.0-1.0); %Eosinophils 0.6 % (0.0-10.0); %Lymphocytes 18.5 % (21.0-51.0); %Monocytes 12.8 % (0.0-10.0); %Neutrophils 67.8 % (42.0-75.0); Hematocrit 25.9 % (42.0-52.0); Hemoglobin 8.9 g/dL (14.0-18.0); Mean Corpuscular Hemoglobin 28.3 pg (27.0-31.0); Mean Corpuscular Volume 82.2 fL (78.0-98.0); Platelet Count 218 10x3/uL (130-400); Red Blood Cell (RBC) Count 3.15 mill/uL (4.70-6.10); White Blood Cell (WBC) Count 8.80 10x3/uL (4.8-10.8)
[2025-01-05 04:53] LABS: Anion Gap 13 mmol/L (10-20); BUN (Urea Nitrogen) 9 mg/dL (8.4-25.7); Calc. Creatinine Clearance 35 mL/min (70-130); Calcium 7.9 mg/dL (7.8-10.44); Carbon Dioxide 25 mmol/L (23-31); Chloride 106 mmol/L (98-107); Glucose 198 mg/dL (83-110); Potassium 3.9 mmol/L (3.5-5.1); Sodium 140 mmol/L (136-145)
[2025-01-05] MEDS ORDERED: VANCOMYCIN IVPB PRN (08:27)
[2025-01-05] MEDS: Ferrous Sulfate 325 MG TAB PO SCH (09:29)
[2025-01-05] MEDS: Calcitriol 0.25 MCG CAP PO SCH (09:30)
[2025-01-05] MEDS: Gabapentin 300 MG CAP PO SCH (09:30)
[2025-01-05] MEDS: Insulin Glargine 30 UNITS/0.3 ML VIAL SC SCH (09:30)
[2025-01-05] MEDS: Isosorbide Mononitrate 30 MG ER.TAB.S PO SCH (09:31)
[2025-01-05] MEDS: Metoprolol Succinate XL 25 MG ER.TAB PO SCH (09:32)
[2025-01-05] MEDS: Pantoprazole 40 MG DR.TAB PO SCH (09:32)
[2025-01-05] MEDS: Pancrelipase DR 12,000 1 CAP PO SCH (12:28)
[2025-01-05] MEDS: Mirtazapine 15 MG TAB PO SCH (21:02)
[2025-01-06 04:01] LABS: #Basophils 0.03 10x3/uL (0.0-0.2); #Eosinophils 0.15 10x3/uL (0.0-0.7); #Monocytes 1.18 10x3/uL (0.11-0.59); #Neutrophils 5.97 10x3/uL (1.40-6.50); %Basophils 0.3 % (0.0-1.0); %Eosinophils 1.5 % (0.0-10.0); %Lymphocytes 27.8 % (21.0-51.0); %Monocytes 11.6 % (0.0-10.0); %Neutrophils 58.5 % (42.0-75.0); Hematocrit 24.2 % (42.0-52.0); Hemoglobin 8.4 g/dL (14.0-18.0); Mean Corpuscular Hemoglobin 27.5 pg (27.0-31.0); Mean Corpuscular Volume 79.3 fL (78.0-98.0); Platelet Count 229 10x3/uL (130-400); Red Blood Cell (RBC) Count 3.05 mill/uL (4.70-6.10); White Blood Cell (WBC) Count 10.20 10x3/uL (4.8-10.8)
[2025-01-06 04:25] LABS: Anion Gap 10 mmol/L (10-20); BUN (Urea Nitrogen) 17 mg/dL (8.4-25.7); Calc. Creatinine Clearance 22 mL/min (70-130); Calcium 7.8 mg/dL (7.8-10.44); Carbon Dioxide 28 mmol/L (23-31); Chloride 105 mmol/L (98-107); Glucose 109 mg/dL (83-110); Potassium 3.9 mmol/L (3.5-5.1); Sodium 139 mmol/L (136-145)
[2025-01-06 07:30] LABS: Magnesium 1.6 mg/dL (1.6-2.6); Vancomycin, Trough 12.4 ug/mL
[2025-01-06] MEDS: Gabapentin 300 MG CAP PO SCH (09:06)
[2025-01-06] MEDS: Ferrous Sulfate 325 MG TAB PO SCH (09:07)
[2025-01-06] MEDS: Amiodarone 200 MG TAB PO SCH (21:15)
[2025-01-07 04:38] LABS: #Basophils Less than 0.03 10x3/uL (0.0-0.2); #Eosinophils 0.15 10x3/uL (0.0-0.7); #Monocytes 0.94 10x3/uL (0.11-0.59); #Neutrophils 6.37 10x3/uL (1.40-6.50); %Basophils 0.1 % (0.0-1.0); %Eosinophils 1.6 % (0.0-10.0); %Lymphocytes 20.4 % (21.0-51.0); %Monocytes 10.0 % (0.0-10.0); %Neutrophils 67.5 % (42.0-75.0); Hematocrit 23.1 % (42.0-52.0); Hemoglobin 7.8 g/dL (14.0-18.0); Mean Corpuscular Hemoglobin 27.4 pg (27.0-31.0); Mean Corpuscular Volume 81.1 fL (78.0-98.0); Platelet Count 230 10x3/uL (130-400); Red Blood Cell (RBC) Count 2.85 mill/uL (4.70-6.10); White Blood Cell (WBC) Count 9.43 10x3/uL (4.8-10.8)
[2025-01-07 05:00] LABS: Anion Gap 10 mmol/L (10-20); BUN (Urea Nitrogen) 26 mg/dL (8.4-25.7); Calc. Creatinine Clearance 16 mL/min (70-130); Calcium 7.5 mg/dL (7.8-10.44); Carbon Dioxide 26 mmol/L (23-31); Chloride 109 mmol/L (98-107); Glucose 76 mg/dL (83-110); Potassium 3.7 mmol/L (3.5-5.1); Sodium 141 mmol/L (136-145)
[2025-01-07 10:47] LABS: Iron 45 ug/dL (65-175); Iron Binding Capacity, Total 50 mcg/dL (261-462)
[2025-01-08] MEDS: Amiodarone 200 MG TAB PO SCH (11:33)
[2025-01-08] MEDS: OLANZapine 10 MG VIAL IM SCH ×2 (15:41→15:43)
[2025-01-09 05:15] LABS: #Basophils Less than 0.03 10x3/uL (0.0-0.2); #Eosinophils 0.14 10x3/uL (0.0-0.7); #Monocytes 1.04 10x3/uL (0.11-0.59); #Neutrophils 4.80 10x3/uL (1.40-6.50); %Basophils 0.2 % (0.0-1.0); %Eosinophils 1.7 % (0.0-10.0); %Lymphocytes 28.3 % (21.0-51.0); %Monocytes 12.4 % (0.0-10.0); %Neutrophils 57.0 % (42.0-75.0); Hematocrit 22.2 % (42.0-52.0); Hemoglobin 7.5 g/dL (14.0-18.0); Mean Corpuscular Hemoglobin 27.5 pg (27.0-31.0); Mean Corpuscular Volume 81.3 fL (78.0-98.0); Platelet Count 252 10x3/uL (130-400); Red Blood Cell (RBC) Count 2.73 mill/uL (4.70-6.10); White Blood Cell (WBC) Count 8.41 10x3/uL (4.8-10.8)
[2025-01-09 05:36] LABS: Anion Gap 10 mmol/L (10-20); BUN (Urea Nitrogen) 37 mg/dL (8.4-25.7); Calc. Creatinine Clearance 13 mL/min (70-130); Calcium 7.6 mg/dL (7.8-10.44); Carbon Dioxide 27 mmol/L (23-31); Chloride 105 mmol/L (98-107); Glucose 159 mg/dL (83-110); Potassium 4.4 mmol/L (3.5-5.1); Sodium 138 mmol/L (136-145)
[2025-01-09] MEDS: Senokot S 8.6-50 MG TAB PO SCH (21:21)
[2025-01-10] MEDS: Isosorbide Mononitrate 30 MG ER.TAB.S PO SCH (09:16)
[2025-01-10] MEDS: Dextrose 50% Abboject 50 ML SYRINGE SLOW IVP PRN (13:35)
[2025-01-10] MEDS: HYDROcodone/Acetaminophen 5/325 mg Tablet PO PRN (20:30)
[2025-01-11 03:44] LABS: #Basophils Less than 0.03 10x3/uL (0.0-0.2); #Eosinophils 0.08 10x3/uL (0.0-0.7); #Monocytes 1.14 10x3/uL (0.11-0.59); #Neutrophils 6.17 10x3/uL (1.40-6.50); %Basophils 0.2 % (0.0-1.0); %Eosinophils 0.8 % (0.0-10.0); %Lymphocytes 25.0 % (21.0-51.0); %Monocytes 11.5 % (0.0-10.0); %Neutrophils 62.2 % (42.0-75.0); Hematocrit 22.2 % (42.0-52.0); Hemoglobin 7.7 g/dL (14.0-18.0); Mean Corpuscular Hemoglobin 27.8 pg (27.0-31.0); Mean Corpuscular Volume 80.1 fL (78.0-98.0); Platelet Count 315 10x3/uL (130-400); Red Blood Cell (RBC) Count 2.77 mill/uL (4.70-6.10); White Blood Cell (WBC) Count 9.92 10x3/uL (4.8-10.8)
[2025-01-11 04:00] LABS: INR-International Normal Ratio 1.2; Prothrombin Time 15.6 sec (12.0-14.7)
[2025-01-11 04:07] LABS: Anion Gap 13 mmol/L (10-20); BUN (Urea Nitrogen) 47 mg/dL (8.4-25.7); Calc. Creatinine Clearance 11 mL/min (70-130); Calcium 7.4 mg/dL (7.8-10.44); Carbon Dioxide 26 mmol/L (23-31); Chloride 104 mmol/L (98-107); Glucose 246 mg/dL (83-110); Potassium 4.6 mmol/L (3.5-5.1); Sodium 138 mmol/L (136-145)
[2025-01-11] MEDS ORDERED: DESMOPRESSIN ACETATE SC SCH (06:00)
[2025-01-11] MEDS ORDERED: SODIUM CHLORIDE 0.9% SC SCH (06:00)
[2025-01-11] MEDS ORDERED: CEFAZOLIN 2 GM VIAL ONE (12:37)
[2025-01-11] MEDS ORDERED: Lidocaine 1% (PF) 30 ML VIAL ONE (12:37)
[2025-01-11] MEDS ORDERED: Ketamine In 0.9 % NaCl 50 MG/5 ML SYRINGE ONE (12:46)
[2025-01-12 08:52] VITALS: BP 131/98; TEMP 98.9
== END 2025-01-12 10:00 | DRG 853 ==
LOC: ERS 15:03 → 2NO 18:21
PROVIDERS: ADMIT Internal Medicine; ATTEND Internal Medicine
PROC: 3E03329 Introduction of Other Anti-infective into Peripheral Vein, Percutaneous Approach (ICD-10-PCS; 2025-01-01)
PROC: 30233J1 Transfusion of Nonautologous Serum Albumin into Peripheral Vein, Percutaneous Approach (ICD-10-PCS; 2025-01-02)
PROC: 0JBR0ZZ Excision of Left Foot Subcutaneous Tissue and Fascia, Open Approach (ICD-10-PCS; principal; 2025-01-04)
PROC: 05PYX3Z Removal of Infusion Device from Upper Vein, External Approach (ICD-10-PCS; 2025-01-11)
DX: A41.50 Gram-negative sepsis, unspecified (principal); E43 Unspecified severe protein-calorie malnutrition; S72.91XA Unspecified fracture of right femur, initial encounter for closed fracture; L89.624 Pressure ulcer of left heel, stage 4; J18.9 Pneumonia, unspecified organism; N18.6 End stage renal disease; I50.32 Chronic diastolic (congestive) heart failure; J96.11 Chronic respiratory failure with hypoxia; N39.0 Urinary tract infection, site not specified; I13.2 Hypertensive heart and chronic kidney disease with heart failure and with stage 5 chronic kidney disease, or end stage renal disease; Z66 Do not resuscitate; K21.9 Gastro-esophageal reflux disease without esophagitis; R65.20 Severe sepsis without septic shock; E11.51 Type 2 diabetes mellitus with diabetic peripheral angiopathy without gangrene; N40.0 Benign prostatic hyperplasia without lower urinary tract symptoms; I48.0 Paroxysmal atrial fibrillation; D64.9 Anemia, unspecified; R91.1 Solitary pulmonary nodule; E11.621 Type 2 diabetes mellitus with foot ulcer; E11.65 Type 2 diabetes mellitus with hyperglycemia; Z79.899 Other long term (current) drug therapy; Z88.8 Allergy status to other drugs, medicaments and biological substances; Z98.890 Other specified postprocedural states; Z72.0 Tobacco use; Z99.2 Dependence on renal dialysis; E88.09 Other disorders of plasma-protein metabolism, not elsewhere classified; Z79.4 Long term (current) use of insulin
CPT/HCPCS: 36415; 36416; 71045; 71250; 74177; 80048; 80053; 80202; 81001; 82728; 82805; 83540; 83550; 83605; 83735; 83880; 84145; 84484; 85025; 85379; 85610; 85730; 86704; 86706; 86803; 87040; 87070; 87077; 87086; 87149; 87186; 87205; 87340; 90935; 90945; 93005; 94640; 94760; 96365; 96366; 96368; 96375; 97139; G0257; J0171; J0282; J0665; J0692; J0696; J1644; J1815; J2270; J2272; J2405; J2704; J3010; J3370; J3490; J7070; J7620; J7999; P9047; Q5105